=== PATIENT | female | born 1990 | race Two or more races ===

== ENCOUNTER 2024-08-10 02:08 | Inpatient (IN) | payer MEDICAID, SELFPAY ==
[2024-08-10] VITALS (19 sets, daily range): BP systolic 112–200; BP diastolic 61–85; PULSE 72–98; RESP 16–98; TEMP 36.4–36.9; O2SAT 97–98; BMI 41.5
[2024-08-10 03:04] LABS: Basophils % (Auto) 0 % (0-2.5); Eosinophils % (Auto) 1 % (0-10); Hematocrit 33.4 % (36.0-46.0); Hemoglobin 11.1 g/dL (12.0-16.0); Immature Granulocytes % (Auto) 0 % (0-0); Immature Granulocytes Auto 0.02 Thou/mm3 (0.00-0.00); Lymphocytes # (Auto) 1.5 Thou/mm3 (1.0-4.8); Lymphocytes % (Auto) 22 % (10-50); Mean Corpuscular HGB Conc 33.2 g/dl (31.0-37.0); Mean Corpuscular Volume 84 fL (80-100); Monocytes # (Auto) 0.5 Thou/mm3 (0.0-0.8); Monocytes % (Auto) 8 % (0-12); Neutrophils # (Auto) 4.6 Thou/mm3 (1.8-7.7); Neutrophils % (Auto) 69 % (37-80); Nucleated Red Blood Cell % 0 /100 WBC (0); Platelet Count 199 Thou/mm3 (140-440); RDW Standard Deviation 52.5 fL (36.4-46.3); Red Blood Count 3.97 Miln/mm3 (4.00-5.20); White Blood Count 6.7 Thou/mm3 (3.6-11.0)
[2024-08-10 03:43] LABS: Syphilis Nonreactive (Nonreactive)
[2024-08-10] MEDS: RINGERS LACTATED 1000 ML 1,000 ML 125 ML IV (04:22)
--- NOTE | 2024-08-10 04:41 | PD.LDHP ---
Documentation for date of: 08/10/24 OB Labor/Induct. HPI History of Present Illness History of sections: No History of : No History of present illness: Dictated on STAT line in [facility]. [id number] History of Present Adequate Care: Yes Past Medical History Surgical History SURGICAL: Negative Section Meds Home Medications and Allergies Home Medications ?Medication ?Instructions ?Recorded ?Confirmed ?Type No Known Home Medications 08/10/24 08/10/24 History Allergies Allergy/AdvReac Type Severity Reaction Status Date / Time No Known Allergies Allergy Verified 08/10/24 02:59 OB Exam Physical Exam Vital signs: Temp Pulse Resp BP O2 Del Method 98.1 F 86 20 138/85 H Room Air 08/10/24 02:58 08/10/24 02:56 08/10/24 02:58 08/10/24 02:56 08/10/24 02:58 OB Results Labs 08/10/24 02:31 Labs: Short CBC 08/10/24 Range/Units 02:31 WBC 6.7 (3.6-11.0) Thou/mm3 Hgb 11.1 L (12.0-16.0) g/dL Hct 33.4 L (36.0-46.0) % Plt Count 199 (140-440) Thou/mm3
--- NOTE | 2024-08-10 05:25 | PD.LDPN ---
Documentation for date of: 08/10/24 OB Labor Progress Note Pelvic Exam Dilation (cm): 6 Effacement (%): 80 station: -2 Amniotic membrane status: Intact Comments: VTX per RN Contractions Contraction frequency: q 3-4 min Status status: Category l Assessment and Plan Comments: Anticipate Declines Epidural.
--- NOTE | 2024-08-10 05:36 | ESHP_ITS ---
RE: SHARRI MARTINEZ : 1990 DATE OF ADMISSION: 08/10/2024 HISTORY OF PRESENT ILLNESS: This is a 33-year-old 6, para 5 with a due date of 08/11/2024 with an intrauterine at 39 weeks and 6 days. She presents to labor and delivery complaining of contractions and is noted to be in early labor. She denies any leaking or bleeding. She reports normal movement. Her care is complicated by borderline chronic hypertension with superimposed preeclampsia without severe features. She denies any headache, change in vision, or right upper quadrant pain. ALLERGIES: NO KNOWN DRUG ALLERGIES. MEDICATIONS: 1. multivitamin one p.o. daily. 2. Aspirin 81 mg one p.o. daily. 3. Ferrous sulfate 325 mg one p.o. b.i.d. PAST MEDICAL HISTORY: Borderline chronic hypertension, preeclampsia, gestational diabetes, and a prior . SOCIAL HISTORY: She is . She denies any alcohol, drug use, or smoking. OBSTETRIC HISTORY: Five prior full-term normal vaginal deliveries without complications. PAST SURGICAL HISTORY: Denies. REVIEW OF SYSTEMS: She denies any chest pain, palpitations, cough, fever, shortness of breath or lower extremity pain. PHYSICAL EXAMINATION: VITAL SIGNS: Blood pressure is 140/90, heart rate 88, respirations 18, temperature 98.2. HEENT: Oropharynx and sclerae are clear. LUNGS: Clear to auscultation bilaterally. HEART: Regular rate and rhythm. ABDOMEN: Gravid, term size consistent with estimated weight 7 3/4 pounds. PELVIC: See RN notes. EXTREMITIES: Nontender. SKIN: No gross rashes or lesions. NEUROLOGIC: No focal deficits. ASSESSMENT AND PLAN: Intrauterine at 39 weeks and 6 days, preeclampsia without severe features, borderline chronic hypertension, early labor, anticipate spontaneous vaginal delivery. Informed consent was obtained. The patient was made aware of the risks, complications, alternatives, and benefits of operative vaginal delivery and delivery and agrees with these modes of delivery if indicated. DT: 04:38:10 TT: 05:34:00 Ref: [id number] - TID: [id number]
[2024-08-10] MEDS: OXYTOCIN in NS 30 units 30 UNIT/500 ML BAG IV (08:59)
--- NOTE | 2024-08-10 12:19 | PD.LDDS ---
DS: Providers Provider Date of admission: 08/10/24 02:18 Primary care physician: Physician No Primary/Family Admitting Provider: Jackson Skaggs MD Attending Provider on Admission: Jackson Skaggs MD Attending Provider on DC: Jackson Skaggs MD Discharging Provider: Jackson Skaggs MD DS: Diagnosis Problem List Completed Was Problem List Reviewed/Reconciled?: Yes Summary/Hosp Course Brief History: Dictated on STAT line in [facility] #9. [id number] Time Spent with Patient Time attestation: Total time spent providing and/or coordinating discharge services: Exam Vital Signs Temp Pulse Resp BP O2 Del Method 98.3 F 98 17 135/85 H Room Air 08/10/24 11:24 08/10/24 11:54 08/10/24 07:03 08/10/24 11:54 08/10/24 02:58 Discharge Plan Plan Patient Disposition: HOME (Self Care) Patient condition on transfer: Stable Prescriptions/Referrals Prescriptions/Med Rec: New ibuprofen 600 mg tablet 600 mg PO Q6H PRN (Reason: pain) Qty: 30 0RF Referrals: No Primary/Family,Physician [Primary Care Provider] - Patient/Caregiver Discharge Instructions Discharge Activity: activity as tolerated Other Discharge Activity Instructions:: Follow up office 6 weeks. Education Materials: After a Vaginal , Breast Care After , : Caring for Yourself Print Language: [place] Citizen Stand Alone Forms: Esther Award Info., Patient Portal Info Letter Discharge Order Discharge Orders: Discharge (Routine); Ordered 08/11/24 Ordered By: Jackson Skaggs Planned Discharge Date 08/11/24
[2024-08-10] MEDS: IBUPROFEN TAB 400 MG TABLET 800 MG PO (13:25)
[2024-08-10] MEDS: BENZOCAINE/BENZETHON (Dermoplast First Aid Spray) 78 GM CAN 1 SPRAY TOP (15:03)
--- NOTE | 2024-08-10 15:16 | OBDSUM_ITS ---
Data (Alfonso) Data Hx Section: No : 6 Para: 5 Term: 5 : 0 : 0 Delivery Data (Alfonso) Labor Data ROM Date: 08/10/24 ROM Time: 10:37 Rupture Type: AROM Amniotic Fluid: Thin Meconium Delivery Data EDC: 08/11/24 EDC calculated by:: LMP/early US confirmation Labor Onset Stage 1 Date: 08/10/24 Labor Onset Stage 1 Time: 05:08 Labor Onset Stage 2 Date: 08/10/24 Labor Onset Stage 2 Time: 11:55 Delivery Date: 08/10/24 Delivery Time: 12:01 Gestational age (weeks): 39 Gestational age (days): 6 Placenta Delivery Date: 08/10/24 Placenta Delivery Time: 12:07 Delivered by: Jackson Skaggs Delivery nurse: Ana Maria Mo Other staff at delivery: Nursery Nurse Other staff at delivery: Abby Rangel Delivery Method Delivery: Vaginal Delivery Type: Spontaneous Presentation: Vertex Position: OA Anesthesia Type Primary Anesthesia: None Placenta Placenta Delivery: Spontaneous Placenta Cultures Obtained: No Placenta Sent for Examination: No Cord Sample: Cord Blood Obtained EBL Estimated blood loss (ml): 150 Additional Procedures None Complications Complications: None Data (Alfonso) [place] Data Gender: Male Weight Grams: 3700 1 Minute Total: 7 5 Minute Total: 9
[2024-08-10 18:48] LABS: Basophils % (Auto) 0 % (0-2.5); Eosinophils % (Auto) 0 % (0-10); Hematocrit 31.4 % (36.0-46.0); Hemoglobin 10.4 g/dL (12.0-16.0); Immature Granulocytes % (Auto) 0 % (0-0); Immature Granulocytes Auto 0.04 Thou/mm3 (0.00-0.00); Lymphocytes # (Auto) 1.1 Thou/mm3 (1.0-4.8); Lymphocytes % (Auto) 11 % (10-50); Mean Corpuscular HGB Conc 33.1 g/dl (31.0-37.0); Mean Corpuscular Volume 85 fL (80-100); Monocytes # (Auto) 0.5 Thou/mm3 (0.0-0.8); Monocytes % (Auto) 5 % (0-12); Neutrophils # (Auto) 8.5 Thou/mm3 (1.8-7.7); Neutrophils % (Auto) 84 % (37-80); Nucleated Red Blood Cell % 0 /100 WBC (0); Platelet Count 183 Thou/mm3 (140-440); RDW Standard Deviation 52.8 fL (36.4-46.3); Red Blood Count 3.71 Miln/mm3 (4.00-5.20); White Blood Count 10.2 Thou/mm3 (3.6-11.0)
[2024-08-11] MEDS: IBUPROFEN TAB 400 MG TABLET 800 MG PO ×2 (00:07→11:11)
[2024-08-11 00:10] VITALS: BP 127/82; PULSE 73; RESP 20; TEMP 36.8; O2SAT 95
[2024-08-11 04:14] VITALS: BP 123/79; PULSE 71; RESP 20; TEMP 36.8; O2SAT 98
[2024-08-11 08:05] VITALS: BP 131/72; PULSE 93; RESP 18; TEMP 36.7; O2SAT 97
[2024-08-11 11:56] VITALS: BP 127/80; PULSE 89; RESP 17; TEMP 36.7; O2SAT 97
== END 2024-08-11 15:14 | disposition home or self-care (01) | DRG 560 ==
LOC: S4SX 12:17 → S4NX 15:00
PROVIDERS: Admitting Provider Specialist; Visit Provider Specialist
DX: O14.04 Mild to moderate pre-eclampsia, complicating childbirth (principal); Z37.0 Single live birth; Z3A.39 39 weeks gestation of pregnancy; O77.0 Labor and delivery complicated by meconium in amniotic fluid; Z53.29 Procedure and treatment not carried out because of patient's decision for other reasons
CPT/HCPCS: 36415; 59409; 85025; 86780; 86850; 86900; 86901; 86923; A9270; J2590; J7120

== ENCOUNTER 2024-08-13 18:39 | Inpatient (IN) | payer MEDICAID, SELFPAY ==
[2024-08-13] VITALS (16 sets, daily range): BP systolic 95–118; BP diastolic 51–72; PULSE 110–145; RESP 21–96; TEMP 39.3; O2SAT 91–97; BMI 30.2
--- NOTE | 2024-08-13 18:59 | PC.NURSE ---
maternal sepsis called
--- NOTE | 2024-08-13 19:04 | XR_ITS ---
Examination: AP chest single view Technique one AP portable semiupright chest single view Exam date and time: August 13, 2024 1935 hrs. Indications: Sepsis protocol, fever vaginal pain post August 10, 2024 Findings: Normal heart size. Lungs are clear. The osseous structures are intact Impression: No active disease
--- NOTE | 2024-08-13 19:04 | XR_ITS ---
Examination: Pelvic ultrasound, transabdominal, complete Technique: Transabdominal ultrasound of the pelvis performed using grayscale imaging Date and time of exam: August 13, 20242 hrs. Indications: Fever today, August 10, 2024 Findings: Uterus 15.9 x 2.4 x 4.8 cm Endometrial stripe 29 mm Right ovary 3.4 x 2.5 x 2.8 cm arterial flow Left ovary 4.0 x 2.5 x 2.67 arterial flow Impression: Recommend transvaginal pelvic sonography follow-up to exclude retained products of conception
--- NOTE | 2024-08-13 19:06 | PD.EDRME ---
Rapid Medical Screening Exam RME Arrival date/time: 08/13/24 18:39 33-year-old female past medical history of preeclampsia and recent vaginal delivery 6 para 6 presents emergency department complaining of pelvic pain fever and chills that has been ongoing since she was discharged from hospital. Chief Complaint: Urogenital-Female Vital signs: Vital Signs Temperature 102.8 F H 08/13/24 18:58 Pulse Rate 145 H 08/13/24 18:58 Respiratory Rate 24 H 08/13/24 18:58 Blood Pressure 100/63 08/13/24 18:58 Pulse Oximetry (%) 97 08/13/24 18:58 Oxygen Delivery Method Room Air 08/13/24 18:58 Vital signs reviewed by provider: Yes
--- NOTE | 2024-08-13 19:30 | PD.EDFMALE ---
ED Female Urogenital RME/HPI General Chief complaint: Urogenital-Female Stated complaint: VAGINAL PAIN @0500; 08/10/24 Time Seen by Provider: 08/13/24 19:20 Source: patient Arrival date/time: 08/13/24 18:39 Mode of arrival: ambulatory Limitations: no limitations RME / HPI RME / HPI Narrative: 08/13/24 18:39 33-year-old female past medical history of preeclampsia and recent vaginal delivery 6 para 6 presents emergency department complaining of pelvic pain fever and chills that has been ongoing since she was discharged from hospital. Dr. Carlin?s Main ED Evaluation: 33-year-old female, 3 days following a normal vaginal delivery, who presents with severe vaginal and pelvic pain and difficulty ambulating. She was discharged home on Tuesday08/10/24 and initially experienced shakiness and chills, which she managed with Tylenol, leading to temporary improvement. However, this morning, she awoke with a sensation of a bone moving while coughing hard, followed by severe pain that has significantly impacted her mobility. She reports being unable to cross her right leg over the other due to intense discomfort. While she is currently lying comfortably, on the hospital bed, any repositioning or movement exacerbates her pain to 10/10. Additionally, she has developed new-onset uterine pain and foul-smelling vaginal discharge but denies excessive vaginal bleeding beyond what she considers normal levels. She denies any other associated symptoms. This is her sixth . Related Data Previous Rx's ?Medication ?Instructions ?Recorded ibuprofen 600 mg tablet 600 mg PO Q6H PRN pain #30 tabs 08/10/24 Allergies Allergy/AdvReac Type Severity Reaction Status Date / Time No Known Allergies Allergy Verified 08/13/24 18:43 Review of Systems Review of Systems Systems Reviewed: All systems reviewed, normal except as documented Past Medical History Past Medical History NEUROLOGIC: Negative Neurological Disorders or Seizures CARDIAC: Negative Cardiac Disorders or Congestive Heart Failure RESPIRATORY: Negative Chronic Obstructive Pulmonary Disease (COPD) GASTROINTESTINAL: Negative Gastrointestinal Disorders or Hepatitis GENITOURINARY: Negative Genitourinary Disorders or Renal Disease REPRODUCTIVE: Positive Previous Pregnancies MUSCULOSKELETAL: Negative Musculoskeletal Disorders ENDOCRINE: Negative Endocrine Disorders, Diabetes Mellitus Type 1 or Diabetes Mellitus Type 2 HEMATOLOGIC: Negative Blood Disorders or Anemia OTHER HISTORY: Negative Hospitalization, Autoimmune Disease, Down Syndrome, Developmental Delay, Shingles, Falls, Blood Transfusions, Blood Transfusion Reaction, Anesthesia Reactions, Organ Transplant, Chemotherapy, Radiation Therapy, Hyperbaric Therapy, MRSA, VRSA, Vancomycin-Resistant Enterococci, Human Immunodeficiency Virus (HIV), Chicken Pox, Measles, Mumps, Rubella (Divehi Measles), Pertussis, Clostridium Difficile or Cancer Family History FAMILY HISTORY: Negative Family Psychiatric Problems, Family Respiratory Disorders, Family Cardiac Disorders, Family Gastrointestinal Problems, Family Cancer, Family Surgery or Family Anesthesia Reaction Surgical History SURGICAL: Negative Section or Organ Transplant Social History SMOKING STATUS: Never smoker ED Exam Narrative Physical exam: GENERAL APPEARANCE: alert and oriented x 4, well-developed, well-nourished, no acute distress VITALS: All vitals were reviewed and the pulse ox is 97% on room air, which is normal according to my interpretation. HEENT: Normocephalic, atraumatic; pupils equal, round, reactive to light; EOMI; mucous membranes pink, moist; oropharynx clear NECK: Supple LUNGS: CTABL; no wheezes, no rales, no rhonchi HEART: Regular rate, regular rhythm; normal S1, S2; no murmurs ABDOMEN: non distended; normal BS; soft, moderate to severe tenderness is noted on palpation of the suprapubic region, without guarding or rebound tenderness; tenderness is elicited with joint flexion, more pronounced on the left side compared to the right; no tenderness is appreciated in the right upper quadrant on deep palpation. BACK: no CVA tenderness EXTREMITIES: atraumatic; no edema NEUROLOGIC: awake; alert and oriented x4; cranial nerves II-XII grossly intact; no focal sensory or motor deficits PSYCHIATRIC: appropriate mood and affect SKIN: warm, dry, normal color; no rashes General Limitations: Present no limitations Course Course Course Narrative: 190 Sepsis alert initiated. Orders made at this time are congruent with ED Adult Sepsis Order List. Re-evaluation is to be completed. 193 Sepsis reassessment performed consisting of lab review, vitals, physical exam including auscultation of heart, lungs, and visual evaluation of capillary refills, mucosal membranes and extremities. CXR is ordered for determining etiology of fever. Quality Measures Current suspected stage: sepsis Possible source: other () Blood cultures ordered: yes Antibiotic ordered: Yes Pertinent labs: 08/13/24 19:19 Lactic Acid 1.9 mMol/L (0.4-2.0) Procalcitonin 8.22 H ng/ml (0.0-0.49) sepsis Orders Category Date Time Status Bedside Influenza A&B Antigen Test NOW Care 08/13/24 19:05 Active Larry Car Operator Q4H START 00 Care 08/13/24 19:04 Active Continuous Pulse Oximetry NOW Care 08/13/24 19:04 Completed In and Out Catheter X1PRN Care 08/13/24 19:21 Active Insert IV NOW Care 08/13/24 19:04 Completed Insert IV NOW Care 08/13/24 19:21 Active NPO NOW Care 08/13/24 19:04 Active Strict Intake and Output Routine Care 08/13/24 19:21 Ordered Diet NPO (NOW) Diet 08/13/24 19:04 Active US pelvic complete Stat Exams 08/13/24 19:04 Completed XR chest 1V SEPSIS PROTOCOL Stat Exams 08/13/24 19:04 Completed B-Type Natriuretic Peptide Stat Lab 08/13/24 19:19 Completed Blood Culture (Lab) Stat Lab 08/13/24 19:19 Received CBC AM DRAW Lab 08/14/24 05:00 Ordered CBC Stat Lab 08/13/24 19:19 Completed Comprehensive Metabolic Panel AM DRAW Lab 08/14/24 05:00 Ordered Comprehensive Metabolic Panel Stat Lab 08/13/24 19:19 Completed Fibrinogen AM DRAW Lab 08/14/24 05:00 Ordered LDH (Lactate Dehydrogenase) Stat Lab 08/13/24 19:19 Completed Lactate (Lactic Acid) Stat Lab 08/13/24 19:19 Completed Lipase Stat Lab 08/13/24 19:19 Completed Magnesium Stat Lab 08/13/24 19:19 Completed Partial Thromboplastin Time AM DRAW Lab 08/14/24 05:00 Ordered Partial Thromboplastin Time Stat Lab 08/13/24 19:19 Completed Phosphorous Stat Lab 08/13/24 19:19 Completed Procalcitonin Stat Lab 08/13/24 19:19 Completed Prothrombin Time with INR AM DRAW Lab 08/14/24 05:00 Ordered Prothrombin Time with INR Stat Lab 08/13/24 19:19 Completed Troponin I Stat Lab 08/13/24 19:19 Completed Urinalysis Stat Lab 08/13/24 19:04 Ordered Urine Culture Stat Lab 08/13/24 19:04 Ordered Acetaminophen Ivpb [Ofirmev Inj] Med 08/13/24 19:31 Discontinued 1,000 mg in 100 ml IV X1 Acetaminophen Tab [Tylenol ES Tab] Med 08/13/24 19:05 Discontinued 1,000 mg PO X1 ONE Clindamycin/Ns 600 mg Ivpb [Cleocin/Ns Ivpb] Med 08/13/24 19:32 Discontinued 600 mg in 50 ml IV X1 Gentamicin/Ns 80 mg Ivpb 80 mg Med 08/13/24 19:30 Discontinued Pre-Mixed [Pre-mixed Bag] 1 bag IV X1 HYDROcodone*/APAP 5/325 [[place] 5/325] Med 08/13/24 23:06 Hold 1 tab PO Q6HR PRN HYDROmorphone INJ [Dilaudid Inj] Med 08/13/24 21:00 Active 0.5 mg IVP PRN Naph,Kph Mbdb [Neutra-Phos Pkt] Med 08/13/24 23:17 Discontinued 1 packet PO X1 ONE Ondansetron Inj [Zofran Inj] Med 08/13/24 20:59 Discontinued 4 mg IV X1 ONE POTASSIUM CHL 10 mEq IVPB [Kcl Ivpb] Med 08/13/24 23:15 Active 10 meq in 100 ml IV Q1H Piper/Tazo 3.375 gm [Zosyn] Med 08/13/24 23:10 Pending 3.375 gm in 50 ml IV Q6HR Piper/Tazo 3.375 gm [Zosyn] 50 ml Med 08/13/24 20:30 Discontinued IV X1 Ringers Lactated 1000 ml [Lactated Ringers] 1,000 ml Med 08/13/24 23:08 Active IV 125 mls/hr Sodium Chloride 0.9% 1000 ml [Ns] 1,000 ml Med 08/13/24 19:30 Discontinued IV 999 mls/hr Sodium Chloride 0.9% 1000 ml [Ns] 1,000 ml Med 08/13/24 20:39 Discontinued IV 999 mls/hr Vancomycin Inj 1,000 mg Med 08/13/24 23:15 Pending Sodium Chloride 0.9% 250 ml [Ns] 250 ml IV Q12H Vancomycin Inj 1,000 mg Med 08/13/24 20:30 Discontinued Sodium Chloride 0.9% 250 ml [Ns] 250 ml IV X1 Code Status Routine Oth 08/13/24 23:01 Ordered EKG (RT) Stat RT 08/13/24 19:04 Ordered Oxygen Delivery NOW RT 08/13/24 19:04 Active Vital Signs Vital signs: Vital Signs Temperature 102.8 F H 08/13/24 18:58 Pulse Rate 145 H 08/13/24 18:58 Respiratory Rate 24 H 08/13/24 18:58 Blood Pressure 100/63 08/13/24 18:58 Pulse Oximetry (%) 97 08/13/24 18:58 Oxygen Delivery Method Room Air 08/13/24 18:58 Urogenital - Female MDM Narrative MDM Narrative:: Differential diagnoses include endometritis, uterine rupture, acute appendicitis, urinary tract infection (UTI), and puerperal sepsis. 1935 Case was discussed with the on-call OB, Dr. Gaston, who has accepted the patient for consultation. 2027 Case d/w Dr. Skaggs, OB, who saw patient at bedside. He states to give Vanco and Zosyn then call him back with the ultrasound results. [address] Skaggs from OB regarding consultation. Discussed patients ED course, exam findings, labs, and radiology results. Will admit the patient. Scribe Attestation: I, Anneilese Sandoval, am scribing for and in the presence of Dr. Carlin. Provider Notation: Although this document has been carefully reviewed, there may still be some phonetic and other typographical errors. These errors are purely grammatical due to imperfections in the software program and should not be construed in any way to compromise the substance of the patient's medical care during this visit. Patient data External records reviewed:: [facility] previous records Clinical information provided by:: patient Social determinants that could affect healthcare access:: none Patient has the following chronic illnesses:: see PMH How is presenting disease/condition affected by chronic disease/condition?: exacerbated by Evaluation data The following diagnostics were reviewed and interpreted by me:: lab results and radiology exam(s) Lab and/or radiology exams considered but not ordered:: na Interpretation Summary: I personally reviewed the radiology data and agree with the radiologist's interpretation. Medications / Prescriptions Medications or Prescriptions considered but not ordered:: na Medication administrations:: Medication Administration History Hydrocodone Bitart/Acetaminophen (Hydrocodone/Apap 5/325 Tablet) 1 tab PO Q6HR PRN PRN Reason: PAIN SCALE 4-10(Mod-Sev Stop: 08/18/24 23:05 Hydromorphone HCl (Hydromorphone Inj 2 Mg/Ml Vial) 0.5 mg IVP PRN ISABEL Stop: 08/18/24 20:59 Last Admin: 08/13/24 22:25 Dose: 0.5 mg Documented By: Admin: 08/13/24 21:35 Dose: 0.5 mg Documented By: EF Lactated Ringer's (Lactated Ringers) 1,000 mls @ 125 mls/hr IV .Q8H ISABEL Stop: 09/12/24 23:07 Last Admin: 08/14/24 00:00 Dose: 125 mls/hr Documented By: EF Piperacillin/Tazobactam/Dextrose (Zosyn) 3.375 gm in 50 mls @ 100 mls/hr IV Q6HR ISABEL Stop: 08/20/24 23:09 Vancomycin HCl 1,000 mg/ (Sodium Chloride) 250 mls @ 150 mls/hr IV Q12H ISABEL Stop: 08/20/24 23:14 Potassium Chloride (Kcl Ivpb) 10 meq in 100 mls @ 100 mls/hr IV Q1H ISABEL Stop: 08/14/24 03:14 Last Admin: 08/14/24 01:56 Dose: 100 mls/hr Documented By: Infusion: 08/14/24 01:55 Dose: Infused Documented By: Admin: 08/14/24 00:55 Dose: 100 mls/hr Documented By: Infusion: 08/14/24 00:55 Dose: Infused Documented By: Admin: 08/14/24 00:00 Dose: 100 mls/hr Documented By: EF Discontinued Medications Acetaminophen (Acetaminophen 500 Mg Tablet) 1,000 mg PO X1 ONE Stop: 08/13/24 19:06 Last Admin: 08/13/24 19:45 Dose: Not Given Documented By: TC Non-Admin Reason: Discontinued Acetaminophen (Ofirmev Inj) 1,000 mg in 100 mls @ 250 mls/hr IV X1 ONE Stop: 08/13/24 19:54 Last Infusion: 08/13/24 20:30 Dose: Infused Documented By: Admin: 08/13/24 20:04 Dose: 250 mls/hr Documented By: KENNETH Sodium Chloride (Ns) 1,000 mls @ 999 mls/hr IV .Q1H1M ONE Stop: 08/13/24 20:30 Last Infusion: 08/13/24 21:26 Dose: Infused Documented By: Admin: 08/13/24 20:03 Dose: 999 mls/hr Documented By: KENNETH Comments: scanner not working Clindamycin/Sodium Chloride (Cleocin/Ns Ivpb) 600 mg in 50 mls @ 100 mls/hr IV X1 ONE Stop: 08/13/24 20:01 Last Infusion: 08/13/24 20:37 Dose: Infused Documented By: Admin: 08/13/24 20:07 Dose: 100 mls/hr Documented By: KENNETH Comments: scanner broken Gentamicin Sulfate/Sodium Chloride 80 mg/ IV Miscellaneous Supplies 50 mls @ 50 mls/hr IV X1 ISABEL Stop: 08/20/24 19:29 Piperacillin/Tazobactam/Dextrose (Zosyn) 50 mls @ 100 mls/hr IV X1 ONE Stop: 08/13/24 20:59 Last Infusion: 08/13/24 21:26 Dose: Infused Documented By: Admin: 08/13/24 20:40 Dose: 100 mls/hr Documented By: EF Vancomycin HCl 1,000 mg/ (Sodium Chloride) 250 mls @ 150 mls/hr IV X1 ONE Stop: 08/13/24 22:09 Last Infusion: 08/13/24 23:32 Dose: Infused Documented By: Admin: 08/13/24 21:35 Dose: 150 mls/hr Documented By: EF Sodium Chloride (Ns) 1,000 mls @ 999 mls/hr IV .Q1H1M ONE Stop: 08/13/24 21:39 Last Infusion: 08/13/24 21:26 Dose: Infused Documented By: Admin: 08/13/24 20:41 Dose: 999 mls/hr Documented By: EF Ondansetron HCl (Ondansetron Inj 2 Mg/Ml Inj 2 Ml) 4 mg IV X1 ONE; Protocol Stop: 08/13/24 21:00 Last Admin: 08/13/24 21:35 Dose: 4 mg Documented By: EF Potassium Phos/Sodium Phos (Naph,[facility] Mbdb 1 Packet (1.5 Gm)) 1 packet PO X1 ONE Stop: 08/13/24 23:18 Last Admin: 08/14/24 01:57 Dose: 1 packet Documented By: TC as above Consultations Consultation(s) initiated? (list below): Yes Consultation #1 (Physician, Specialty, Details): see narrative Diagnosis Urogenital Female Differential Diagnosis: other (see narrative) Most likely diagnosis given after review of the tests above:: see clinical impression Admission Indicated Admission indicated?: indicated Admission Request Was there a request for admission?: Yes Admission Attestation Admission request attestation: Discussed case with [] from Hospitalist service regarding admission. Discussed patients ED course, exam findings, labs, and radiology results. The Hospitalist [agrees,declines] to accept the patient for admission. Disposition Plan Disposition Plan: Admit Critical Care Time Critical Care Time Critical Care Time: Yes Total Critical Care Time (min.): 40 Attestation: The high probability of sudden, clinically significant deterioration in the patient?s condition required the highest level of my preparedness to intervene urgently. ? The services I provided to this patient were to treat and/or prevent clinically significant deterioration. Services included the following: chart data review, reviewing nursing notes and/or old charts, documentation time, transformation consultant collaboration regarding findings and treatment options, medication orders and management, direct patient care, vital sign assessments and ordering, interpreting and reviewing diagnostic studies and lab tests. ? Aggregate critical care time includes only time during which I was engaged in work directly related to the patient?s care, as described above, whether at bedside or elsewhere in the Emergency Department. It did not include time spent performing other reported procedures or the services of residents, students, nurses or physician assistants. Discharge Plan Problem List Clinical Impression: Acute endometritis, Sepsis
[2024-08-13 19:32] LABS: Lactate (Lactic Acid) 1.9 mMol/L (0.4-2.0)
[2024-08-13 19:56] LABS: Partial Thromboplastin Time 37.6 Seconds (22.0-36.0); Prothrombin Time 11.4 Seconds (9.0-12.2)
[2024-08-13 19:57] LABS: Alanine Aminotransferase 15 U/L (10-49); Albumin, Serum 3.2 gm/dL (3.5-5.0); Albumin/Globulin Ratio 1.2 (1.2-2.2); Alkaline Phosphatase 111 U/L (46-116); Anion Gap 13 (7-16); Aspartate Amino Transferase 29 U/L (0-34); BUN/Creatinine Ratio 23 Ratio (12-20); Bilirubin,Total 0.9 mg/dL (0.3-1.2); Blood Urea Nitrogen 16 mg/dL (9-23); Calcium (Corrected) 8.6 mg/dL (8.5-10.1); Carbon Dioxide 20.5 mMol/L (20.0-31.0); Chloride 98 mMol/L (98-107); Creatinine (Component) 0.7 mg/dL (0.6-1.3); Globulin 2.6 gm/dL (2.3-3.5); Glucose 85 mg/dL (74-106); LDH (Lactate Dehydrogenase) 347 U/L (120-246); Lipase 28 U/L (12-53); Magnesium 1.7 mg/dL (1.6-2.6); Osmolality,Calculated 262 (275-295); Phosphorous 1.8 mg/dL (2.4-5.1); Potassium 3.1 mMol/L (3.4-5.1); Sodium 131 mMol/L (136-145); Total Protein 5.8 gm/dL (5.7-8.2); eGFR > 60 See Note
[2024-08-13 20:00] LABS: Troponin I 0.054 ng/mL (0.0-0.045)
[2024-08-13] MEDS: SODIUM CHLORIDE 0.9% 1000 ML 1,000 ML 999 ML IV ×2 (20:03→20:41)
[2024-08-13] MEDS: ACETAMINOPHEN IVPB 1,000 MG/100 ML VIAL 250 MG IV (20:04)
[2024-08-13 20:05] LABS: Procalcitonin 8.22 ng/ml (0.0-0.49)
[2024-08-13] MEDS: CLINDAMYCIN/NS 600 MG IVPB 600 MG/50 ML BAG 100 MG IV (20:07)
[2024-08-13 20:09] LABS: Basophils % (Auto) 0 % (0-2.5); Eosinophils % (Auto) 0 % (0-10); Hematocrit 33.4 % (36.0-46.0); Hemoglobin 11.5 g/dL (12.0-16.0); Immature Granulocytes % (Auto) 0 % (0-0); Immature Granulocytes Auto 0.03 Thou/mm3 (0.00-0.00); Lymphocytes # (Auto) 0.3 Thou/mm3 (1.0-4.8); Lymphocytes % (Auto) 4 % (10-50); Mean Corpuscular HGB Conc 34.4 g/dl (31.0-37.0); Mean Corpuscular Hemoglobin 28.2 pg (25.0-35.0); Mean Corpuscular Volume 82 fL (80-100); Monocytes # (Auto) 0.2 Thou/mm3 (0.0-0.8); Monocytes % (Auto) 3 % (0-12); Neutrophils # (Auto) 7.5 Thou/mm3 (1.8-7.7); Neutrophils % (Auto) 93 % (37-80); Nucleated Red Blood Cell % 0 /100 WBC (0); Platelet Count 121 Thou/mm3 (140-440); RDW Standard Deviation 51.4 fL (36.4-46.3); Red Blood Count 4.08 Miln/mm3 (4.00-5.20); White Blood Count 8.1 Thou/mm3 (3.6-11.0)
[2024-08-13 20:30] LABS: B-Type Natriuretic Peptide 56 pg/mL (0-100)
--- NOTE | 2024-08-13 20:31 | PC.NURSE ---
191: Jalil RNC-OB in pt's room to assess Pt., Pt A/O x3, reports my body aches, when I cross my legs over another, it hurts , Pt's fundus firm, light pink lochia with white to yellowish foul odor smell noted. On fundal massage, lower abdominal segment was warm to touch. Pt. rates pain 10/10.
[2024-08-13] MEDS: PIPER/TAZO 3.375 GM 50 ML IV (20:40)
--- NOTE | 2024-08-13 20:54 | ESHP_ITS ---
Documentation for date of: 08/13/24 MANUFACTURERS REPRESENTATIVE - HPI History of Present Illness History of present illness: H and P dictated on STAT line in [facility] #9. [id number]. Meds Home Medications and Allergies Allergies Allergy/AdvReac Type Severity Reaction Status Date / Time No Known Allergies Allergy Verified 08/13/24 18:43 Exam - MANUFACTURERS REPRESENTATIVE Vital Signs Temp Pulse Resp BP Pulse Ox O2 Del Method 102.8 F H 132 H 27 H 100/63 97 Room Air 08/13/24 18:58 08/13/24 19:43 08/13/24 19:43 08/13/24 18:58 08/13/24 18:58 08/13/24 18:58 MANUFACTURERS REPRESENTATIVE - Results Labs 08/13/24 19:19 08/13/24 19:19 Labs: Short CBC 08/13/24 Range/Units 19:19 WBC 8.1 (3.6-11.0) Thou/mm3 Hgb 11.5 L (12.0-16.0) g/dL Hct 33.4 L (36.0-46.0) % Plt Count 121 L D (140-440) Thou/mm3 BMP 08/13/24 19:19 Sodium 131 L Potassium 3.1 L Chloride 98 Carbon Dioxide 20.5 BUN 16 Creatinine 0.7 Glucose 85 Calcium 8.0 L Cardiac Enzymes 08/13/24 Range/Units 19:19 Troponin I 0.054 H* (0.0-0.045) ng/mL Liver Function 08/13/24 Range/Units 19:19 Total Bilirubin 0.9 (0.3-1.2) mg/dL AST 29 (0-34) U/L ALT 15 (10-49) U/L Alkaline Phosphatase 111 (46-116) U/L Albumin 3.2 L (3.5-5.0) gm/dL Quality Measures Quality Measures sepsis Current suspected stage: severe sepsis Possible source: other () Blood cultures ordered: yes Antibiotic ordered: Yes
--- NOTE | 2024-08-13 21:05 | PC.NURSE ---
1919: Rubi Dougherty RN/ ED charge nurse made aware of findings.
[2024-08-13] MEDS: ONDANSETRON INJ 2 MG/ML INJ 2 ML 4 MG IV (21:35)
[2024-08-13] MEDS: Vancomycin Inj 1,000 MG in SODIUM CHLORIDE 0.9% 250 ML 250 ML 150 MG IV (21:35)
[2024-08-13] MEDS: HYDROmorphone INJ 2 MG/ML VIAL 0.5 MG IVP ×2 (21:35→22:25)
[2024-08-14] VITALS (31 sets, daily range): BP systolic 94–131; BP diastolic 59–86; PULSE 98–130; RESP 12–98; TEMP 36.4–38.3; O2SAT 92–98; BMI 29.9
[2024-08-14] MEDS: POTASSIUM CHL 10 mEq IVPB 10 MEQ/100 ML BAG 100 MEQ IV ×4 (00:55→03:09)
[2024-08-14] MEDS: NAPH,KPH MBDB 1 PACKET (1.5 GM) PO (01:57)
[2024-08-14 04:52] LABS: Basophils % (Auto) 0 % (0-2.5); Eosinophils % (Auto) 0 % (0-10); Hematocrit 31.6 % (36.0-46.0); Hemoglobin 10.5 g/dL (12.0-16.0); Immature Granulocytes % (Auto) 1 % (0-0); Lymphocytes # (Auto) 0.3 Thou/mm3 (1.0-4.8); Lymphocytes % (Auto) 4 % (10-50); Mean Corpuscular HGB Conc 33.2 g/dl (31.0-37.0); Mean Corpuscular Hemoglobin 28.2 pg (25.0-35.0); Mean Corpuscular Volume 85 fL (80-100); Monocytes # (Auto) 0.3 Thou/mm3 (0.0-0.8); Monocytes % (Auto) 4 % (0-12); Neutrophils # (Auto) 7.3 Thou/mm3 (1.8-7.7); Neutrophils % (Auto) 91 % (37-80); Nucleated Red Blood Cell % 0 /100 WBC (0); Platelet Count 112 Thou/mm3 (140-440); RDW Standard Deviation 54.1 fL (36.4-46.3); Red Blood Count 3.73 Miln/mm3 (4.00-5.20)
[2024-08-14 04:58] LABS: Collection Type, Urine Clean Catch
[2024-08-14 05:02] LABS: Bacteria,Urine Rare; Bilirubin,Urine Negative (Negative); Blood,Urine 3+ (Negative); Clarity,Urine Turbid (Clear/Hazy); Glucose, Urine Negative (Negative); Ketones,Urine Negative (Negative); Leukocyte Esterase,Urine Positive (Negative); Nitrite,Urine Negative (Negative); Protein,Urine 1+ (Neg - Trace); RBC,Urine 51 /hpf (0-3); Specific Gravity,Urine 1.022 (1.001-1.035); Squamous Epithelial Cell,Urine < 1 /hpf (0-5); Urobilinogen,Urine Negative mg/dL (0.0-1.0); WBC,Urine 59 /hpf (0-5)
[2024-08-14 05:09] LABS: Color,Urine Yellow (Lt Yel-Yel)
[2024-08-14 05:10] LABS: Partial Thromboplastin Time 39.1 Seconds (22.0-36.0); Prothrombin Time 11.2 Seconds (9.0-12.2)
[2024-08-14 05:13] LABS: Alanine Aminotransferase 13 U/L (10-49); Albumin/Globulin Ratio 1.3 (1.2-2.2); Alkaline Phosphatase 96 U/L (46-116); Anion Gap 8 (7-16); Aspartate Amino Transferase 24 U/L (0-34); BUN/Creatinine Ratio 22 Ratio (12-20); Bilirubin,Total 0.6 mg/dL (0.3-1.2); Blood Urea Nitrogen 13 mg/dL (9-23); Calcium 7.9 mg/dL (8.3-10.6); Calcium (Corrected) 8.7 mg/dL (8.5-10.1); Carbon Dioxide 23.1 mMol/L (20.0-31.0); Chloride 108 mMol/L (98-107); Creatinine (Component) 0.6 mg/dL (0.6-1.3); Estimated Creatinine Clearance 116.7 mL/min (>60); Globulin 2.3 gm/dL (2.3-3.5); Glucose 81 mg/dL (74-106); Osmolality,Calculated 276 (275-295); Potassium 3.5 mMol/L (3.4-5.1); Sodium 139 mMol/L (136-145); Total Protein 5.3 gm/dL (5.7-8.2); eGFR > 60 See Note
[2024-08-14 05:19] LABS: Fibrinogen 674 mg/dL (175-375)
--- NOTE | 2024-08-14 07:16 | ESHP_ITS ---
RE: SHARRI MARTINEZ : 1990 DATE OF ADMISSION: 08/13/2024 HISTORY OF PRESENT ILLNESS: This is a 33-year-old 6, para 6 who is day 3, status post spontaneous vaginal delivery without complication on 08/10 where she delivered a viable . Her course was unremarkable with no excessive bleeding and no fever or tachycardia. She was discharged home on day #1 with a normal white blood cell count without complaint. Subsequently, after she was discharged she noticed lower pelvic pain radiating to the vagina associated with fever and chills and feeling of prominence in the bone over the bladder when she coughs and pain in the area when she tries to cross her legs. The patient also reports a foul smelling discharge. Her care was complicated by borderline chronic hypertension with superimposed preeclampsia without severe features. ALLERGIES: NO KNOWN DRUG ALLERGIES. MEDICATIONS: 1. multivitamin 1 p.o. daily. 2. Ferrous sulfate 325 mg one p.o. b.i.d. PAST MEDICAL HISTORY: Borderline chronic hypertension with superimposed preeclampsia without severe features, gestational diabetes mellitus in a previous . SOCIAL HISTORY: She is . She denies any alcohol drug use or smoking. OBSTETRIC HISTORY: Six previous full-term normal vaginal deliveries without complication. PAST SURGICAL HISTORY: Denies. REVIEW OF SYSTEMS: She denies any chest pain, palpitations, shortness of breath or lower extremity pain or swelling. She denies any cough, sore throat, photophobia, flank pain, diarrhea or constipation. PHYSICAL EXAMINATION: VITAL SIGNS: Blood pressure is 100/63, heart rate 132, respirations 27, temperature is 102.8. HEENT: Oropharynx and sclerae are clear. LUNGS: Clear to auscultation bilaterally. HEART: Tachycardic, but regular rhythm. ABDOMEN: Uterine fundus is firm below the umbilicus. Mild tenderness with deep palpation. Overall, the abdomen is soft with no guarding, rebound, or rigidity. Tenderness noted at the site of the symphysis pubis. EXTREMITIES: Nontender. SKIN: No gross rashes or lesion. NEUROLOGIC: No focal deficits. ASSESSMENT: 1. endometritis. 2. Sepsis. 3. Possible symphysis pubis separation 4. UTI PLAN: Pelvic ultrasound to rule out retained products of conception. Zosyn and vancomycin, IV antibiotics. Pelvic x-ray to rule out symphysis pubis separation, pain management, sepsis labs and workup. I discussed with the patient, the nature of her condition and recommended treatment plan. All questions answered. Anticipate hospitalization for 48 to 72 hours. DT: 20:54:41 TT: 21:16:00 Ref: [id number] - TID: [id number] MTDD
[2024-08-14] MEDS: HYDROmorphone INJ 2 MG/ML VIAL 0.5 MG IVP ×2 (07:52→11:26)
[2024-08-14] MEDS: PIPER/TAZO INJ 3.375 GM in SODIUM CHLORIDE 0.9% (P) 50 ML IV ×2 (08:00→22:14)
--- NOTE | 2024-08-14 11:22 | XR_ITS ---
Examination: AP pelvis single view TECHNIQUE: AP portable supine pelvis single view Exam date and time: August 14, 2024 1139 hours INDICATIONS: pelvic pain FINDINGS: Diastasis at the symphysis 13 mm No hip or pelvic fracture Symmetrical SI joints IMPRESSION: Diastasis at the symphysis, 13 mm
[2024-08-14] MEDS: RINGERS LACTATED 1000 ML 1,000 ML 125 ML IV ×3 (11:24→20:26)
--- NOTE | 2024-08-14 12:17 | PC.NURSE ---
Report given to Tele
--- NOTE | 2024-08-14 12:20 | PC.NURSE ---
Pt arrived on the [facility] floor at 12:20
[2024-08-14] MEDS: ACETAMINOPHEN 325 MG TABLET 650 MG PO ×2 (12:50→23:58)
[2024-08-14] MEDS: VANCOMYCIN/NS 1 GM IVPB 200 ML IV ×2 (14:58→21:41)
[2024-08-14] MEDS: HYDROcodone/APAP 5/325 TABLET 1 TAB PO (21:45)
[2024-08-15] VITALS (10 sets, daily range): BP systolic 114–137; BP diastolic 77–88; PULSE 112–135; RESP 16–94; TEMP 36.6–39.4; O2SAT 91–95
[2024-08-15] MEDS: PIPER/TAZO INJ 3.375 GM in SODIUM CHLORIDE 0.9% (P) 50 ML IV ×2 (05:24→15:05)
[2024-08-15 05:28] LABS: Basophils # (Auto) 0.1 Thou/mm3 (0.0-0.2); Basophils % (Auto) 1 % (0-2.5); Eosinophils % (Auto) 0 % (0-10); Hematocrit 29.9 % (36.0-46.0); Hemoglobin 9.9 g/dL (12.0-16.0); Immature Granulocytes % (Auto) 5 % (0-0); Immature Granulocytes Auto 0.25 Thou/mm3 (0.00-0.00); Lymphocytes # (Auto) 0.5 Thou/mm3 (1.0-4.8); Lymphocytes % (Auto) 10 % (10-50); Mean Corpuscular HGB Conc 33.1 g/dl (31.0-37.0); Mean Corpuscular Hemoglobin 27.9 pg (25.0-35.0); Mean Corpuscular Volume 84 fL (80-100); Monocytes # (Auto) 0.2 Thou/mm3 (0.0-0.8); Monocytes % (Auto) 4 % (0-12); Neutrophils # (Auto) 3.8 Thou/mm3 (1.8-7.7); Neutrophils % (Auto) 80 % (37-80); Nucleated Red Blood Cell % 0 /100 WBC (0); Platelet Count 110 Thou/mm3 (140-440); RDW Standard Deviation 54.6 fL (36.4-46.3); Red Blood Count 3.55 Miln/mm3 (4.00-5.20); White Blood Count 4.7 Thou/mm3 (3.6-11.0)
[2024-08-15] MEDS: RINGERS LACTATED 1000 ML 1,000 ML 125 ML IV ×3 (05:29→22:10)
[2024-08-15 05:43] LABS: Partial Thromboplastin Time 34.9 Seconds (22.0-36.0)
[2024-08-15 05:53] LABS: Fibrinogen 720 mg/dL (175-375)
[2024-08-15 06:05] LABS: Alanine Aminotransferase 11 U/L (10-49); Albumin, Serum 2.7 gm/dL (3.5-5.0); Albumin/Globulin Ratio 1.2 (1.2-2.2); Alkaline Phosphatase 190 U/L (46-116); Anion Gap 10 (7-16); Aspartate Amino Transferase 17 U/L (0-34); BUN/Creatinine Ratio 28 Ratio (12-20); Bilirubin,Total 0.5 mg/dL (0.3-1.2); Blood Urea Nitrogen 11 mg/dL (9-23); Calcium 7.6 mg/dL (8.3-10.6); Calcium (Corrected) 8.6 mg/dL (8.5-10.1); Carbon Dioxide 22.5 mMol/L (20.0-31.0); Chloride 104 mMol/L (98-107); Creatinine (Component) 0.4 mg/dL (0.6-1.3); Estimated Creatinine Clearance 173.9 mL/min (>60); Globulin 2.3 gm/dL (2.3-3.5); Glucose 79 mg/dL (74-106); Osmolality,Calculated 270 (275-295); Potassium 3.2 mMol/L (3.4-5.1); Sodium 136 mMol/L (136-145); eGFR > 60 See Note
[2024-08-15] MEDS: POTASSIUM CHLORIDE 20 mEq TABCR 40 MEQ PO (08:21)
[2024-08-15] MEDS: HYDROcodone/APAP 5/325 TABLET 1 TAB PO (10:55)
[2024-08-15] MEDS: VANCOMYCIN/NS 1 GM IVPB 200 ML IV ×2 (11:00→22:06)
--- NOTE | 2024-08-15 13:14 | PC.SS ---
VESSEL SPECIALIST conducted bedside contact with the patient to conduct initial assessment and to discuss discharge planning on behalf of the patient.? Patient resides at home with family.? Patient does not utilize DME.? Patient does not require the use of home oxygen.? Patient is independent with ADL?s.? Patient?s medical surrogate decision maker is spouse, Darryl Jordan.? Patient utilizes [facility] for PCP services.? Patient utilizes [facility] for medication services.? Plan is for the patient to discharge home.? Physical [address] is [address] [place] [address], [place].? No discharge needs identified by the patient.? No further intervention required at this time, social organization professor will be available to address any further concerns.? Next of Kin: Darryl Jordan D/C Plan: Home
[2024-08-15] MEDS: guaiFENesin/COD SYRUP 5 ML UDC 10 ML PO ×2 (15:05→22:47)
--- NOTE | 2024-08-15 15:22 | PC.NURSE ---
Patient has been tachycardic (120-140) . Patient is asymptomatic, denies chest pain, palpitation or any discomfort. Dr. Skaggs aware, no new orders.
--- NOTE | 2024-08-15 15:30 | XR_ITS ---
Examination: Transvaginal ultrasound of the pelvis, complete Technique: Transvaginal sonographic images pelvis performed using brice scale imaging Exam date and time: August 15, 2024 1548 hours INDICATIONS: sepsis 3 days, clinical diagnosis endometritis FINDINGS: Uterus 20 x 7.6 x 4.4 cm Endometrial stripe 11 mm No discrete uterine mass Ovaries obscured by bowel gas IMPRESSION: Limited study No uterine mass or retained products of conception. Recommend transabdominal pelvic sonography repeat follow-up
[2024-08-15 17:08] LABS: Basophils # (Auto) 0.1 Thou/mm3 (0.0-0.2); Basophils % (Auto) 1 % (0-2.5); Eosinophils % (Auto) 0 % (0-10); Hematocrit 29.8 % (36.0-46.0); Immature Granulocytes % (Auto) 6 % (0-0); Immature Granulocytes Auto 0.44 Thou/mm3 (0.00-0.00); Lymphocytes # (Auto) 0.8 Thou/mm3 (1.0-4.8); Lymphocytes % (Auto) 11 % (10-50); Mean Corpuscular HGB Conc 33.6 g/dl (31.0-37.0); Mean Corpuscular Hemoglobin 27.9 pg (25.0-35.0); Mean Corpuscular Volume 83 fL (80-100); Monocytes # (Auto) 0.3 Thou/mm3 (0.0-0.8); Monocytes % (Auto) 4 % (0-12); Neutrophils # (Auto) 5.4 Thou/mm3 (1.8-7.7); Neutrophils % (Auto) 78 % (37-80); Nucleated Red Blood Cell % 0 /100 WBC (0); Platelet Count 121 Thou/mm3 (140-440); RDW Standard Deviation 54.4 fL (36.4-46.3); Red Blood Count 3.59 Miln/mm3 (4.00-5.20); White Blood Count 6.9 Thou/mm3 (3.6-11.0)
[2024-08-15] MEDS: POTASSIUM CHLORIDE 20 mEq TABCR PO (17:57)
--- NOTE | 2024-08-15 20:08 | ESPR_ITS ---
RE: SHARRI MARTINEZ : 1990 DATE OF SERVICE: 08/14/2024 S: The patient has pain at the site of the symphysis pubis. She denies any abdominal pain. She is feeling better. She is voiding and ambulating and tolerating a regular diet. O: Lungs: Clear to auscultation bilaterally. Heart: Tachycardia, irregular rhythm. Abdomen: Nontender. Symphysis pubis tender to deep palpation. Extremities: Nontender. A: 1. endometritis. 2. Sepsis. 3. Symphysis pubis separation. P: Continue vancomycin and Zosyn. Follow culture results. Physical therapy for symphysis separation upon discharge home. DT: 19:13:36 TT: 20:06:00 Ref: [id number] - TID: [id number]
[2024-08-15] MEDS: ACETAMINOPHEN 325 MG TABLET 650 MG PO (20:09)
--- NOTE | 2024-08-15 20:48 | ESPR_ITS ---
RE: SHARRI MARTINEZ : 1990 DATE OF SERVICE: 08/15/2024 S: The patient feels better. She is voiding and ambulating and tolerating a regular diet. She is passing flatus, but she reports some loose stools. O: Vital Signs: Blood pressure 114/78, heart rate 125, respirations 17, temperature 99.3, T-max is 101. Lungs: Clear to auscultation bilaterally. Heart: Tachycardic, but regular rhythm. Abdomen: Bladder distended. Symphysis pubis tenderness to deep palpation. Extremities: Nontender. No edema. LABORATORY DATA: Transvaginal pelvic ultrasound shows no retained products of conception. Bladder showed 900 mL of retained urine. Blood culture shows Strep pyogenes. A: endometritis, sepsis secondary to Strep pyogenes, group A. Continue vancomycin and Zosyn. The patient requires inpatient treatment with IV antibiotics until resolution of sepsis, including afebrile for 48 hours and resolution of the tachycardia. Abernathy catheter placed for urinary retention and 12 hour bladder rest. P: Bladder rest and remove Abernathy catheter in the morning. Hypokalemia, potassium supplementation. I discussed with the patient the nature of her condition and the recommended treatment plan. All questions answered. DT: TT: 20:46:00 Ref: [id number] - TID: [id number] [facility]
[2024-08-15] MEDS: HYDROCORTISONE ACET CR 2.5% 30 GM TUBE PR (21:00)
[2024-08-16] VITALS (8 sets, daily range): BP systolic 124–140; BP diastolic 78–91; PULSE 104–125; RESP 17–96; TEMP 36.3–37.3; O2SAT 94–96
[2024-08-16] MEDS: PIPER/TAZO INJ 3.375 GM in SODIUM CHLORIDE 0.9% (Popper) 50 ML IV ×4 (00:29→18:06)
[2024-08-16] MEDS: guaiFENesin/COD SYRUP 5 ML UDC 10 ML PO ×3 (04:53→22:20)
--- NOTE | 2024-08-16 04:57 | ESPR_ITS ---
RE: SHARRI MARTINEZ : 1990 DATE OF SERVICE: 08/16/2024 SUBJECTIVE: The patient had urinary retention yesterday, which was incidentally discovered at the time of pelvic ultrasound. She had 900 mL of urine in the bladder, although she had been voiding, apparently not completely emptying her bladder. Therefore, a Abernathy catheter was placed for bladder rest. The patient continues to tolerate a regular diet without nausea or vomiting. She reported loose stools C. diff is pending. She denies any chest pain, palpitations, shortness of breath. She denies any headaches, stiff neck, photophobia, flank pain, lower extremity pain or swelling. She has a non productive cough. OBJECTIVE: Vital Signs: Blood pressure 132/91, heart rate 109, respirations 24, temperature 99.1, T-max is 102.9, and pulse ox is 95% on room air. Lungs: Clear to auscultation bilaterally. Heart: Regular rate and rhythm. Abdomen: Nontender, nondistended, soft. No guarding, rebound, or rigidity. Tenderness in the area of the symphysis pubis. Extremities: Nontender. No edema. LABORATORY DATA: Blood culture results preliminarily show Strep pyogenes. Transvaginal pelvic ultrasound shows no uterine mass or retained products of conception. ASSESSMENT AND PLAN: 1. day #6, status post spontaneous vaginal delivery complicated by fever secondary to endometritis with subsequent sepsis with confirmed Strep pyogenes bacteremia. The patient has been on vancomycin and Zosyn 36 hours since admission with continued spiking fevers. Plan is to consult with hospitalist team regarding additional measures. Follow morning labs. 2. Symphysis pubis separation. Requires nonsteroidal anti-inflammatory medication p.r.n. and physical therapy upon discharge. 3. Goals for discharge is afebrile for 48 hours and resolution of tachycardia. DT: 04:01:49 TT: 04:55:00 Ref: [id number] - TID: [id number] MTDD
--- NOTE | 2024-08-16 06:20 | XR_ITS ---
Examination: PA lateral chest 2 views TECHNIQUE: Upright PA lateral chest 2 views Exam date and time: August 16, 2024 at 0804 hours Comparison August 13, 2024 INDICATIONS: Coughing today FINDINGS: Normal heart size Lungs are clear. The osseous structures are intact IMPRESSION: No active disease
[2024-08-16 07:13] LABS: Basophils # (Auto) 0.1 Thou/mm3 (0.0-0.2); Basophils % (Auto) 1 % (0-2.5); Eosinophils % (Auto) 0 % (0-10); Hemoglobin 9.5 g/dL (12.0-16.0); Immature Granulocytes % (Auto) 7 % (0-0); Immature Granulocytes Auto 0.49 Thou/mm3 (0.00-0.00); Lymphocytes # (Auto) 0.9 Thou/mm3 (1.0-4.8); Lymphocytes % (Auto) 13 % (10-50); Mean Corpuscular HGB Conc 32.8 g/dl (31.0-37.0); Mean Corpuscular Hemoglobin 27.8 pg (25.0-35.0); Mean Corpuscular Volume 85 fL (80-100); Monocytes # (Auto) 0.4 Thou/mm3 (0.0-0.8); Monocytes % (Auto) 5 % (0-12); Neutrophils # (Auto) 5.5 Thou/mm3 (1.8-7.7); Neutrophils % (Auto) 75 % (37-80); Nucleated Red Blood Cell % 0 /100 WBC (0); Platelet Count 117 Thou/mm3 (140-440); RDW Standard Deviation 56.3 fL (36.4-46.3); Red Blood Count 3.42 Miln/mm3 (4.00-5.20); White Blood Count 7.3 Thou/mm3 (3.6-11.0)
[2024-08-16] MEDS: RINGERS LACTATED 1000 ML 1,000 ML 125 ML IV (07:35)
[2024-08-16 07:46] LABS: Alanine Aminotransferase 19 U/L (10-49); Albumin, Serum 2.7 gm/dL (3.5-5.0); Albumin/Globulin Ratio 1.3 (1.2-2.2); Alkaline Phosphatase 261 U/L (46-116); Anion Gap 9 (7-16); Aspartate Amino Transferase 33 U/L (0-34); BUN/Creatinine Ratio 18 Ratio (12-20); Bilirubin,Total 0.6 mg/dL (0.3-1.2); Blood Urea Nitrogen 7 mg/dL (9-23); Calcium 7.7 mg/dL (8.3-10.6); Calcium (Corrected) 8.7 mg/dL (8.5-10.1); Carbon Dioxide 25.9 mMol/L (20.0-31.0); Chloride 107 mMol/L (98-107); Creatinine (Component) 0.4 mg/dL (0.6-1.3); Estimated Creatinine Clearance 173.9 mL/min (>60); Globulin 2.1 gm/dL (2.3-3.5); Glucose 68 mg/dL (74-106); Osmolality,Calculated 279 (275-295); Phosphorous 3.2 mg/dL (2.4-5.1); Potassium 3.4 mMol/L (3.4-5.1); Procalcitonin 1.44 ng/ml (0.0-0.49); Sodium 142 mMol/L (136-145); Total Protein 4.8 gm/dL (5.7-8.2); Vancomycin,Trough 6.5 mcg/mL (5.0-10.0); eGFR > 60 See Note
[2024-08-16 07:48] LABS: INR 1.1 (0.9-1.3); Partial Thromboplastin Time 33.4 Seconds (22.0-36.0); Prothrombin Time 11.5 Seconds (9.0-12.2)
[2024-08-16] MEDS: HYDROCORTISONE ACET CR 2.5% 30 GM TUBE PR ×2 (09:27→22:20)
[2024-08-16] MEDS: POTASSIUM CHLORIDE 20 mEq TABCR PO ×2 (09:27→18:06)
[2024-08-16 09:53] LABS: Clostridium Difficile PCR Negative (Negative)
--- NOTE | 2024-08-16 11:56 | PC.LAC ---
Mom states she is and would like to pump. She was given a kit and advised to hand pump. Explained that she would need to use an electric pump in order to maintain a good milk supply especially when from her baby. Mom states that she will have to pump and dump for a while per provider recommendation due to medications she is on. Looked up all medications she is currently taking in [facility], all medications are safe for baby. None of them exceed L3 status and explained that when given the hydrocodone (L3) the half life is 3.8 hours to just pump around 3 hours after it is given. Left copies of the information from Dr. Osman book for mom, nurse and provider to review if needed. Mom understands to stay on a schedule of pumping at least every 2-3 hours including overnight in order to maintain her milk supply while from baby. Also explained that her milk in room temperature is good for up to 4 hours, if she places it on ice it is good for 18 hours. Explained best case scenario would be for someone to come pick it up so it can be stored in the fridge or freezer. mom understood
[2024-08-16] MEDS: VANCOMYCIN/NS 1 GM IVPB 200 ML IV ×2 (13:48→22:13)
[2024-08-16 13:58] LABS: Fibrinogen 773 mg/dL (175-375)
--- NOTE | 2024-08-16 23:29 | ESHP_ITS ---
Documentation for date of: 08/16/24 [facility] History of Present Illness History of present illness: This is a 33-year-old , day 7 spontaneous vaginal delivery without complications on 08/10, with delivery of a viable infant. She had an unremarkable course with no excessive bleeding, fever or tachycardia. She returns to the hospital following 3 days of fever, chills, and suprapubic pain that is worse with coughing. During encounter, she denied foul-smelling urine or vaginal bleed/discharge. Although admission note states foul-smelling discharge, currently denies dysuria, hematuria, urinary frequency or urgency, or vaginal discharge. Her care was complicated by borderline chronic HTN with superimposed preeclampsia without severe features. Denies headaches, fall, trauma, night sweats, chest pain, shortness of breath, productive cough, abdominal pain, N/V/D/C, dark stool or GI bleed, dysuria, hematuria, vaginal bleed or discharge, urinary urgency or frequency. On admission: T102.8, BP 100/63, HR 130, RR 27. Hgb 9.5, baseline around 10. MCV 85. Fibrinogen 674, remainder coag study normal. Sodium 131 > 142, potassium 3.1 > 3.4 after correction, Pro-Calc 8.22 > 1.44, remainder chemistry panel WNL. UA turbid with WBC 59, RBC 51, positive leukocyte esterase. TVUS endometrial thickening of 11 mm, likely change, no evidence of RPOC. Pelvic XR showed diastasis at the symphysis (likely post- change), no pelvic fracture. CXR showed no active disease. UA turbid with WBC 59, RBC 51, positive LE. Blood culture grew strep pyogenes. She was continued on VANCOMYCIN and ZOSYN. Adequately fluid resuscitated. No fever for the last 24 hours. Internal medicine consulted for management of endometriosis as above. PMHx: P66, borderline chronic hypertension, preeclampsia, gestational diabetes PSHx: None MEDS: IBUPROFEN for pain ALLERGIES: NKA FHx: Not relevant. SH: Denies alcohol, tobacco, or drug use. Exam Vital Signs Temp Pulse Resp BP Pulse Ox O2 Del Method 97.4 F 113 H 20 129/90 H 96 Room Air 08/16/24 20:00 08/16/24 20:00 08/16/24 20:00 08/16/24 20:00 08/16/24 20:00 08/16/24 20:00 Narrative Exam GENERAL * Normal-appearing adult female, no apparent distress. HEENT * NCAT.?HUSSAIN. Oral mucosa is moist. Patent Nares NECK * Supple, nontender, no thyromegaly, no meningismus, no JVD, no step offs CHEST * Tachycardic, regular rhythm, no m/g/r * CTAB, no w/r/r. Symmetrical chest rise. No intercostal subcostal retraction * Atraumatic, nontender, no crepitus, symmetrical expansion. ABDOMEN * Soft, flat. No guarding/rebound tenderness/masses. * Bowel sounds presents * Mild tenderness to palpation suprapubic area. EXTREMITIES * Nontender, no cyanosis, no edema * No edema/cyanosis.? SKIN * Warm and dry, no jaundice/rashes. * Superficial erythematous skin lesion over left anterior thigh, nontender, no warmth or discharge. NEUROMUSCULAR * No lumbar or midline, no CVA, no paraspinal muscle spasm or tenderness. * Moves all 4 extremities well, with full ROM and good CSM. * HERNÁNDEZ x4, CN II-XII grossly intact. * No focal neurologic deficits. PSYCHIATRY * Normal mood and affect, cooperative, no SI or HI or hallucinations. Results: Labs 08/16/24 06:29 08/16/24 06:29 Labs: Short CBC 08/16/24 Range/Units 06:29 WBC 7.3 (3.6-11.0) Thou/mm3 Hgb 9.5 L (12.0-16.0) g/dL Hct 29.0 L (36.0-46.0) % Plt Count 117 L (140-440) Thou/mm3 BMP 08/16/24 06:29 Sodium 142 Potassium 3.4 Chloride 107 Carbon Dioxide 25.9 BUN 7 L Creatinine 0.4 L Glucose 68 L Calcium 7.7 L Liver Function 08/16/24 Range/Units 06:29 Total Bilirubin 0.6 (0.3-1.2) mg/dL AST 33 (0-34) U/L ALT 19 (10-49) U/L Alkaline Phosphatase 261 H D (46-116) U/L Albumin 2.7 L (3.5-5.0) gm/dL Quality Measures Quality Measures sepsis Current suspected stage: sepsis Possible source: other () Blood cultures ordered: yes Antibiotic ordered: Yes Medications Home Medications and Allergies Allergies Allergy/AdvReac Type Severity Reaction Status Date / Time No Known Allergies Allergy Verified 08/13/24 18:43 Visit Medications Acetaminophen (Acetaminophen 325 Mg Tablet) 650 mg PO Q4HR PRN PRN Reason: FEVER >101 Stop: 09/13/24 12:13 Last Admin: 08/15/24 20:09 Dose: 650 mg Hydrocodone Bitart/Acetaminophen (Hydrocodone/Apap 5/325 Tablet) 1 tab PO Q6HR PRN PRN Reason: PAIN SCALE 4-10(Mod-Sev Stop: 08/18/24 23:05 Last Admin: 08/15/24 10:55 Dose: 1 tab Guaifenesin/Codeine Phosphate (Guaifenesin/Cod Syrup 5 Ml Udc) 10 ml PO Q6H PRN; Protocol PRN Reason: COUGH Stop: 09/14/24 14:41 Last Admin: 08/16/24 22:20 Dose: 10 ml Hydrocortisone (Hydrocortisone Acet Cr 2.5% 30 Gm Tube) 0 gm WV BID ISABEL Stop: 09/14/24 20:59 Last Admin: 08/16/24 22:20 Dose: 1 appln Lactated Ringer's (Lactated Ringers) 1,000 mls @ 125 mls/hr IV .Q8H ISABEL Stop: 09/12/24 23:07 Last Admin: 08/16/24 22:50 Dose: Not Given Vancomycin/Sodium Chloride (Vancomycin/Ns 1 Gm Ivpb) 200 mls @ 120 mls/hr IV Q8HR ISABEL; Protocol Stop: 08/22/24 21:59 Last Admin: 08/16/24 22:13 Dose: 120 mls/hr Piperacillin Sod/Tazobactam (Sod 3.375 gm/ Sodium Chloride) 50 mls @ 100 mls/hr IV Q6HR ISABEL Stop: 08/22/24 17:59 Last Admin: 08/16/24 18:06 Dose: 100 mls/hr Pharmacy Consult (Vancomycin Pharmacy To Dose 1 Each Each) 1 each IV QDAY PRN PRN Reason: CONSULT Stop: 09/14/24 14:44 Discontinued Medications Acetaminophen (Acetaminophen 500 Mg Tablet) 1,000 mg PO X1 ONE Stop: 08/13/24 19:06 Last Admin: 08/13/24 19:45 Dose: Not Given Hydromorphone HCl (Hydromorphone Inj 2 Mg/Ml Vial) 0.5 mg IVP PRN IASBEL Stop: 08/18/24 20:59 Last Admin: 08/14/24 11:26 Dose: 0.5 mg Acetaminophen (Ofirmev Inj) 1,000 mg in 100 mls @ 250 mls/hr IV X1 ONE Stop: 08/13/24 19:54 Last Infusion: 08/13/24 20:30 Dose: Infused Sodium Chloride (Ns) 1,000 mls @ 999 mls/hr IV .Q1H1M ONE Stop: 08/13/24 20:30 Last Infusion: 08/13/24 21:26 Dose: Infused Clindamycin/Sodium Chloride (Cleocin/Ns Ivpb) 600 mg in 50 mls @ 100 mls/hr IV X1 ONE Stop: 08/13/24 20:01 Last Infusion: 08/13/24 20:37 Dose: Infused Gentamicin Sulfate/Sodium Chloride 80 mg/ IV Miscellaneous Supplies 50 mls @ 50 mls/hr IV X1 [facility] Stop: 08/20/24 19:29 Piperacillin/Tazobactam/Dextrose (Zosyn) 50 mls @ 100 mls/hr IV X1 ONE Stop: 08/13/24 20:59 Last Infusion: 08/13/24 21:26 Dose: Infused Vancomycin HCl 1,000 mg/ (Sodium Chloride) 250 mls @ 150 mls/hr IV X1 ONE Stop: 08/13/24 22:09 Last Infusion: 08/13/24 23:32 Dose: Infused Sodium Chloride (Ns) 1,000 mls @ 999 mls/hr IV .Q1H1M ONE Stop: 08/13/24 21:39 Last Infusion: 08/13/24 21:26 Dose: Infused Piperacillin Sod/Tazobactam (Sod 3.375 gm/ Sodium Chloride) 50 mls @ 12.5 mls/hr IV Q8HR [facility]; Protocol Stop: 08/20/24 05:59 Last Admin: 08/15/24 15:05 Dose: 12.5 mls/hr Potassium Chloride (Kcl Ivpb) 10 meq in 100 mls @ 100 mls/hr IV Q1H ISABEL Stop: 08/14/24 03:14 Last Infusion: 08/14/24 04:24 Dose: Infused Vancomycin/Sodium Chloride (Vancomycin/Ns 1 Gm Ivpb) 200 mls @ 120 mls/hr IV X1 ONE Stop: 08/14/24 10:54 Last Admin: 08/14/24 14:58 Dose: 120 mls/hr Vancomycin/Sodium Chloride (Vancomycin/Ns 1 Gm Ivpb) 200 mls @ 120 mls/hr IV Q12H [facility] Stop: 08/21/24 21:59 Last Admin: 08/15/24 11:00 Dose: 120 mls/hr Ondansetron HCl (Ondansetron Inj 2 Mg/Ml Inj 2 Ml) 4 mg IV X1 ONE; Protocol Stop: 08/13/24 21:00 Last Admin: 08/13/24 21:35 Dose: 4 mg Potassium Chloride (Potassium Chloride 20 Meq Tabcr) 40 meq PO X1 ONE Stop: 08/15/24 06:55 Last Admin: 08/15/24 08:21 Dose: 40 meq Potassium Chloride (Potassium Chloride 20 Meq Tabcr) 20 meq PO BIDWM [facility] Stop: 09/14/24 17:29 Last Admin: 08/16/24 18:06 Dose: 20 meq Potassium Phos/Sodium Phos (Naph,[facility] Mbdb 1 Packet (1.5 Gm)) 1 packet PO X1 ONE Stop: 08/13/24 23:18 Last Admin: 08/14/24 01:57 Dose: 1 packet Assessment & Plan Plan In summary: 33-year-old female G6, P6, day 5 uncomplicated spontaneous vaginal delivery, with fever and chills. Admitted for sepsis in setting of endometritis and GBS bacteremia. Patient recommendations from infectious disease team. Sepsis endometriotic GBS bacteremia UTI S/p spontaneous vaginal delivery Had uncomplicated spontaneous vaginal delivery on 08/10. G6, P6, no history of section. Returning with 3 days of fever and chills. Met 3/4 SIRS criteria with Tmax 102.9, RR 24, and HR 145 with signs of EOD i.e. troponin 0.054. TVUS endometrial thickening of 11 mm, likely change, no evidence of RPOC. Pelvic XR showed diastasis at the symphysis (likely post- change), no pelvic fracture. CXR showed no active disease. UA turbid with WBC 59, RBC 51, positive LE. Blood cutlture 08/13 grew Strep pyogenes, usually Has been on fluids, ZOSYN and VANCOMYCIN. No fever in 24 hours. No leukocytosis. Adequately fluid resuscitated, will decrease maintenance rate. May discharge if asymptomatic, 48H blood culture negative, afebrile for 48 hours. ? No indication for VANCOMYCIN given overall improvement, will discontinue. ? Continue with ZOSYN (08/15 to present), de-escalate if ID agrees. ? Continue gentle fluid maintenance at 60 cc/H ? Endometrial culture usually not recommended, likely show contaminant ? Pending repeat blood and urine culture ? Pending ID recommendations NSTEMI, likely type 2 Tachycardia Presentation, troponin 0.054. No EKG obtained. Likely type II in settings of sepsis. Tachycardia improving with fluids, HR 145 > 113. ? Pending EKG ? Pending echo as we continue fluids ? Repleted potassium ? Pending magnesium Chronic normocytic anemia Hgb 9.5, baseline around 10. No signs or symptoms of active bleed. ? Recommended outpatient workup for chronic anemia ? Recommended iron therapy once infection resolves ? Transfuse if Hgb less than 7 Skin lesion of left anterior thigh Noted on exam, about 30*20 mm erythematous lesion, nonpruritic, nontender, no discharge. Patient believes she had an insect bite last week. Less likely to be source of bacteremia. ? Wound care Elevated fibrinogen Fibrinogen 674 > 720 > 773. Likely acute phase reaction secondary to and delivery. ? Management per primary team. day 7 Symphysis pubis separation ? Managed by primary team. Appreciate the opportunity to participate in the care of this patient. Patient case was discussed with attending, Michael Chawla MD. Natty Beard DO PGYI Attending Provider Attestation/Addendum Pt was evaluated and plan formulated together with the housestaff team. I have reviewed the residents note above and agree with most of its content. Please refer to the residents note for additional details. The patient is a 33-year-old female, status post spontaneous vaginal delivery on 08/10 without complications. She was discharged home on day #1 in stable condition with no significant complaints. However, she subsequently developed lower pelvic pain radiating to the vagina, fever, chills, foul-smelling vaginal discharge, and discomfort over the pubic bone when coughing or crossing her legs. She was readmitted on 02/17, and blood cultures grew Streptococcus pyogenes. She has been on vancomycin and piperacillin- tazobactam for 36 hours but continues to have spiking fevers. - Repeat blood cultures to assess for persistent bacteremia. - DC vancomycin, keep piperacillin-tazobactam now. Consider de-escalation based on sensitivity results. - Monitor for signs of sepsis or worsening infection. - Consult Infectious Disease for further antibiotic recommendations. - Cardiac echo.
--- NOTE | 2024-08-16 23:52 | EKG_ITS ---
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
--- NOTE | 2024-08-16 23:54 | PC.NURSE ---
seen and examined by Dr. Chawla.
[2024-08-16 23:59] LABS: Lactate (Lactic Acid) 0.9 mMol/L (0.4-2.0)
[2024-08-17] VITALS: BP 123/83; PULSE 107; PULSE 116; RESP 19; TEMP 36.3; O2SAT 95
[2024-08-17] MEDS: POTASSIUM CHLORIDE 20 mEq TABCR 40 MEQ PO (01:19)
[2024-08-17] MEDS: RINGERS LACTATED 1000 ML 1,000 ML 60 ML IV (01:27)
[2024-08-17] MEDS: PIPER/TAZO INJ 3.375 GM in SODIUM CHLORIDE 0.9% (Popper) 50 ML IV ×4 (01:27→17:39)
[2024-08-17] MEDS: POTASSIUM CHL 10 mEq IVPB 10 MEQ/100 ML BAG 100 MEQ IV ×2 (02:13→02:55)
[2024-08-17 04:00] VITALS: BP 132/93; PULSE 105; RESP 18; TEMP 36.6; O2SAT 95
[2024-08-17 05:01] LABS: Lactate (Lactic Acid) 0.8 mMol/L (0.4-2.0)
[2024-08-17 05:08] LABS: Basophils # (Auto) 0.1 Thou/mm3 (0.0-0.2); Basophils % (Auto) 1 % (0-2.5); Eosinophils # (Auto) 0.1 Thou/mm3 (0.0-0.5); Eosinophils % (Auto) 1 % (0-10); Hematocrit 28.4 % (36.0-46.0); Hemoglobin 9.2 g/dL (12.0-16.0); Immature Granulocytes % (Auto) 9 % (0-0); Immature Granulocytes Auto 0.84 Thou/mm3 (0.00-0.00); Lymphocytes # (Auto) 1.4 Thou/mm3 (1.0-4.8); Lymphocytes % (Auto) 14 % (10-50); Mean Corpuscular HGB Conc 32.4 g/dl (31.0-37.0); Mean Corpuscular Hemoglobin 27.5 pg (25.0-35.0); Mean Corpuscular Volume 85 fL (80-100); Monocytes # (Auto) 0.5 Thou/mm3 (0.0-0.8); Monocytes % (Auto) 5 % (0-12); Neutrophils % (Auto) 71 % (37-80); Nucleated Red Blood Cell % 0 /100 WBC (0); Platelet Count 163 Thou/mm3 (140-440); RDW Standard Deviation 56.6 fL (36.4-46.3); Red Blood Count 3.34 Miln/mm3 (4.00-5.20); White Blood Count 9.9 Thou/mm3 (3.6-11.0)
[2024-08-17 05:32] LABS: Magnesium 1.8 mg/dL (1.6-2.6)
--- NOTE | 2024-08-17 07:00 | PC.NURSE ---
seen and examined by Dr. Skaggs, Clarified tele monitor order- w/ orders made and carried out.
--- NOTE | 2024-08-17 07:27 | ESPR_ITS ---
Subjective Subjective Interval history: Patient feels better. No foul-smelling discharge. No vaginal itching. No vaginal bleeding. She is tolerating her diet, she is voiding completely, she is ambulating with difficulty due to pain at symphysis pubis, getting adequate pain relief with ibuprofen as needed. Loose stools but no diarrhea. No crampy abdominal pain. She denies any headache photophobia stiff neck or flank pain. She denies any chest pain shortness of breath or palpitations. Her cough is improved Exam Vital Signs Temp Pulse Resp BP Pulse Ox O2 Del Method 97.8 F 105 H 18 132/93 H 95 Room Air 08/17/24 04:00 08/17/24 04:00 08/17/24 04:00 08/17/24 04:00 08/17/24 04:00 08/17/24 04:00 Routine Respiratory Exam Comments: Lungs clear to auscultation Routine Cardiovascular Exam Comments: Tachycardic but regular rhythm Routine Abdominal Exam Comments: Nontender, fundus is firm well below umbilicus Routine Extremities Exam Comments: Nontender Routine Psychiatric Exam Comments: No depression or anxiety Additional findings Additional findings: C. difficile titer negative Chest x-ray negative Echocardiogram pending Objective Labs 08/17/24 04:48 08/16/24 06:29 Labs: Laboratory Results - last 24 hr 08/15/24 08/16/24 08/16/24 22:45 06:29 23:42 WBC 7.3 RBC 3.42 L Hgb 9.5 L Hct 29.0 L MCV 85 MCH 27.8 MCHC 32.8 RDW Std Deviation 56.3 H Plt Count 117 L Neut % (Auto) 75 Lymph % (Auto) 13 [facility] % (Auto) 5 Eos % (Auto) 0 Baso % (Auto) 1 Neut # (Auto) 5.5 Lymph # (Auto) 0.[address] [facility] # (Auto) 0.4 Eos # (Auto) 0.0 Baso # (Auto) 0.1 Immature Gran # (Auto) 0.49 H Absolute Nucleated RBC 0.00 Immature Gran % 7 H Nucleated RBC % 0 PT 11.5 INR 1.1 APTT 33.4 Fibrinogen 773 H* Sodium 142 Potassium 3.4 Chloride 107 Carbon Dioxide 25.9 Anion Gap 9 BUN 7 L Creatinine 0.4 L Estim Creat Clear Calc 173.9 eGFR > 60 BUN/Creatinine Ratio 18 Glucose 68 L Calculated Osmolality 279 Lactic Acid 0.9 Calcium 7.7 L Corrected Calcium 8.7 Phosphorus 3.2 Magnesium Total Bilirubin 0.6 AST 33 ALT 19 Alkaline Phosphatase 261 H D Total Protein 4.8 L Albumin 2.7 L Globulin 2.1 L Albumin/Globulin Ratio 1.3 Procalcitonin 1.44 H Stl C. diff Tox B Gene Negative Vancomycin Trough 6.5 08/17/24 04:48 WBC 9.9 RBC 3.34 L Hgb 9.2 L Hct 28.4 L MCV 85 MCH 27.5 MCHC 32.4 RDW Std Deviation 56.6 H Plt Count 163 D Neut % (Auto) 71 Lymph % (Auto) 14 [facility] % (Auto) 5 Eos % (Auto) 1 Baso % (Auto) 1 Neut # (Auto) 7.0 Lymph # (Auto) 1.4 [facility] # (Auto) 0.5 Eos # (Auto) 0.1 Baso # (Auto) 0.1 Immature Gran # (Auto) 0.84 H Absolute Nucleated RBC 0.00 Immature Gran % 9 H Nucleated RBC % 0 PT INR APTT Fibrinogen Sodium Potassium Chloride Carbon Dioxide Anion Gap BUN Creatinine Estim Creat Clear Calc eGFR BUN/Creatinine Ratio Glucose Calculated Osmolality Lactic Acid 0.8 Calcium Corrected Calcium Phosphorus Magnesium 1.8 Total Bilirubin AST ALT Alkaline Phosphatase Total Protein Albumin Globulin Albumin/Globulin Ratio Procalcitonin Stl C. diff Tox B Gene Vancomycin Trough Assessment & Plan Assessment Comment Assessment comment: status post spontaneous vaginal delivery complicated by readmission to the hospital with endometritis and sepsis due to strep pyogenes confirmed bacteremia Afebrile greater than 36 hours Tachycardia persistent but mostly less than 120s Vancomycin discontinued Continuing on Zosyn Repeat blood culture drawn Renal function, liver function, coag profile, H&H all stable (elevated fibrinogen secondary to hormones and expect spontaneous resolution.) Appreciate hospitalist recommendations: will defer to hospitalist regarding timing of discharge and discharge antibiotics. Tachycardia Echocardiogram pending Med telemetry Loose stools C. difficile negative Symphysis pubis separation Physical therapy upon discharge home Nonsteroidal anti-inflammatories as needed Expect to have difficulty walking with pain for several weeks Breast-feeding Okay to resume breast pumping and storage of milk Preeclampsia without severe features and superimposed borderline chronic hypertension Blood pressure controlled without antihypertensives Blood pressure will improve with time will follow as outpatient with home blood pressure logs Time Spent With Patient Time: Total time spent is greater than 50% in coordination of care (as documented) at patient's floor/unit and/or counseling patient:
[2024-08-17 08:00] VITALS: BP 144/85; PULSE 100; PULSE 110; RESP 18; TEMP 36.1; O2SAT 92
[2024-08-17] MEDS: HYDROCORTISONE ACET CR 2.5% 30 GM TUBE PR ×2 (08:24→22:30)
[2024-08-17 10:40] LABS: Lactate (Lactic Acid) 1.9 mMol/L (0.4-2.0)
--- NOTE | 2024-08-17 11:46 | PC.SS ---
Follow up note: SS met with PT and they recommended FWW. SS faxed order request to Dr. Grande's office. DME order form placed on chart as well. Patient confirmed she wants the FWW. Her d/c address: [address], [place]. Patient requesting FWW be delivered to patient's room.
[2024-08-17 12:00] VITALS: BP 130/82; PULSE 101; PULSE 108; RESP 21; TEMP 36.6; O2SAT 95
[2024-08-17 13:13] LABS: Lactate (Lactic Acid) 1.1 mMol/L (0.4-2.0)
--- NOTE | 2024-08-17 14:20 | PD.RESPRO ---
Documentation for date of: 08/17/24 Subjective Subjective Interval history: Patient seen at bedside. No acute overnight events. She is a 33-year-old female 6 para 6 on day 7 after having a spontaneous vaginal delivery on 08/10 who presented with fever and suprapubic pain. She was admitted for sepsis secondary to endometritis and was started on IV Zosyn and vancomycin. Vancomycin has been discontinued but patient continues to be on Zosyn. Currently fever free for the last [address] Campos consulted, repeat pending cultures pending. 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 Eyes open, symmetrical, & clear CARDIO: No chest pain on palpation. Tachycardic, regular rhythm, no murmurs PULM: No noted coughing/dyspnea. Lungs CTA B/L GI: Abdomen soft, nondistended, no pain on palpation. BSx4 URO/BUSINESS CONTINUITY MANAGEMENT DIRECTOR:: Pubic region tender to palpation SKIN/MSK/EXT: No wounds/rashes/edema/amputations, no pain on palpation. Pedal pulses present B/L Objective Labs 08/18/24 06:12 08/18/24 06:12 Labs: Laboratory Results - last 24 hr 08/16/24 08/17/24 08/17/24 23:42 04:48 10:11 WBC 9.9 RBC 3.34 L Hgb 9.2 L Hct 28.4 L MCV 85 MCH 27.5 MCHC 32.4 RDW Std Deviation 56.6 H Plt Count 163 D Neut % (Auto) 71 Lymph % (Auto) 14 [place] % (Auto) 5 Eos % (Auto) 1 Baso % (Auto) 1 Neut # (Auto) 7.0 Lymph # (Auto) 1.4 [place] # (Auto) 0.5 Eos # (Auto) 0.1 Baso # (Auto) 0.1 Immature Gran # (Auto) 0.84 H Absolute Nucleated RBC 0.00 Immature Gran % 9 H Nucleated RBC % 0 Lactic Acid 0.9 0.8 1.9 Magnesium 1.8 08/17/24 12:40 WBC RBC Hgb Hct MCV MCH MCHC RDW Std Deviation Plt Count Neut % (Auto) Lymph % (Auto) [place] % (Auto) Eos % (Auto) Baso % (Auto) Neut # (Auto) Lymph # (Auto) [place] # (Auto) Eos # (Auto) Baso # (Auto) Immature Gran # (Auto) Absolute Nucleated RBC Immature Gran % Nucleated RBC % Lactic Acid 1.1 Magnesium Quality Measures Quality Measures sepsis Current suspected stage: sepsis Possible source: other () Blood cultures ordered: yes Antibiotic ordered: Yes Assessment & Plan Assessment Current Active Medications: Generic Name Dose Route Start Last Admin Trade Name Freq PRN Reason Stop Dose Admin Acetaminophen 650 mg 08/14/24 12:14 08/15/24 20:09 Acetaminophen 325 Mg Tablet PO 09/13/24 12:13 650 mg Q4HR PRN Administration FEVER >101 Hydrocodone Bitart/Acetaminophen 1 tab 08/13/24 23:06 08/15/24 10:55 Hydrocodone/Apap 5/325 Tablet PO 08/18/24 23:05 1 tab Q6HR PRN Administration PAIN SCALE 4-10(Mod-Sev Guaifenesin/Codeine Phosphate 10 ml 08/15/24 14:42 08/16/24 22:20 Guaifenesin/Cod Syrup 5 Ml Udc PO 09/14/24 14:41 10 ml Q6H PRN Administration COUGH Protocol Hydrocortisone 0 gm 08/15/24 21:00 08/17/24 08:24 Hydrocortisone Acet Cr 2.5% 30 Gm Tube ND 09/14/24 20:59 1 appln BID ISABEL Administration Piperacillin Sod/Tazobactam 50 mls @ 100 mls/hr 08/15/24 18:00 08/17/24 11:42 Sod 3.375 gm/ Sodium Chloride IV 08/22/24 17:59 100 mls/hr Q6HR ISABEL Administration Plan Summary: The patient is a 33-year-old female greater 6 para 6 and day 7 was admitted for sepsis secondary to endometritis #Sepsis # endometritis #Day 7 She is a 33-year-old female 6 para 6 on day 7 after having a spontaneous vaginal delivery on 02/14 who presented with fever and suprapubic pain. She was admitted for sepsis secondary to endometritis and was started on IV Zosyn and vancomycin. Blood culture on 08/13/2024 returned positive for strep pyogenes, pansensitive. Vancomycin has been discontinued but patient continues to be on Zosyn. Currently fever free for the last 48 hours. Plan: -Continue IV Zosyn -Pending repeat blood cultures -ID consulted, appreciate recommendations -Continue to monitor vital signs #Elevated troponin levels #Type II NSTEMI On admission, troponin level was 0.05. Patient denies any chest pain and EKG was unremarkable. Plan: -Continue to monitor #Pubic pain #Symphysis pubis diastasis The patient complained of pubic pain on admission, a pelvic x-ray was done which showed diastases and a pubic symphysis as complication of vaginal delivery. Plan: -Pain management -Physical therapy #Normocytic anemia The patient's looks to have chronic anemia with baseline around 10, possibly changes. Will continue to monitor and possibly recommend outpatient workup Health maintenance: Dispo: MedSurg Diet:Regular diet DVT: SCDs Abernathy: None Lines: Peripheral PT: Ordered Code: Full Case was discussed with Dr Smith PGY-2 and attending physician, Dr Gera Casas MD PGY1 Disclaimer: This note was dictated by speech recognition. Minor errors in clinical research spec may be present due to voice recognition software. Patient examined and case discussed with the team including attending physician. Note reviewed, I agree with the care plan as documented. Ms Jordan is a pleasant 33 year old female who is s/p normal delivery. Hospitalist team was consulted for sepsis. Patient is improving on IV Zosyn, has remained afebrile and WBC wnl. Patient tolerating diet, adequate urine output and mentation is at baseline. Dispo: Anticipate DC in 24 hours. RN to ambulate patient. - Justus Smith MD, PGY 2 Disclaimer: The document bellow may not be free of grammatical/phonetic/typographic errors due to use of voice recognition software. This does not dissuade from the commitment to providing health care with the patient's best interest in mind. Attending Provider Attestation/Addendum I have examined the patient, reviewed labs and imaging findings, discussed the case with the resident(s), and reviewed entered orders. I agree with the plan of care as outlined in this note, with these additional summaries/recommendations: Patient seen at bedside. No acute overnight events. Today patient reports she feels well. She worked with physical therapy earlier in the day and does endorse mild/moderate pubic pain secondary to symphysis pubis separation. Otherwise patient has no other symptoms to report at this time and states she is currently pumping and storing her breastmilk. Hospitalist team was consulted for strep pyogenes bacteremia. Blood cultures from 08/13/2024 grew strep pyogenes (group A) and patient was started on vancomycin and Zosyn. Patient appears to have improved significantly and no longer spiking fevers and leukocytosis has resolved. Agree with continuing IV Zosyn for now. Typical treatment duration for strep pyogenes bacteremia is 7 to 10 days. Infectious disease was consulted and we will follow-up for recommendations. If patient continues to clinically improve and remains afebrile she can likely be discharged in the next 24 to 48 hours with either ampicillin or azithromycin or clindamycin based on sensitivities. Appreciate OB Recs on which antibiotic is safest with breast-feeding. We will also follow-up with infectious disease and will likely require an additional 4 to 5 days of oral antibiotics depending on when patient is discharged. Patient was noted to have elevated troponins previously which is most likely secondary to demand ischemia in the setting of sepsis unrelated to coronary artery disease. Echocardiogram was ordered and pending. Repeat hematology and chemistry panel in AM. Patient updated on the plan and in agreement. Dr. Gera MD
--- NOTE | 2024-08-17 14:25 | PC.PT ---
PT eval only. Patient is I with transfers and ambulation with FWW.
[2024-08-17 16:00] VITALS: BP 141/88; PULSE 87; PULSE 93; RESP 17; TEMP 36.4; O2SAT 95
[2024-08-17] MEDS: guaiFENesin/COD SYRUP 5 ML UDC 10 ML PO (17:39)
[2024-08-17 20:00] VITALS: BP 137/78; PULSE 95; RESP 16; TEMP 37.2; O2SAT 96
--- NOTE | 2024-08-17 23:52 | ECHO_ITS ---
Transthoracic Echo Report Ht (in): 60 Wt (lb): 153 Exam Location: Echo Lab Status: Inpatient Sales Service Promoter: AZRA Slade^^^^ Indications: Procedure Performed: BP: 144 / 88 HR: 110 Technical Quality: Fair MEASUREMENTS (Male / Female) Normal Values 2D ECHO LV Diastolic Diameter PLAX 5.5 cm 4.2 - 5.9 / 3.9 - 5.3 cm LV Systolic Diameter PLAX 3.6 cm IVS Diastolic Thickness 0.8 cm 0.6 - 1.0 / 0.6 - 0.9 cm LVPW Diastolic Thickness 1.1 cm 0.6 - 1.0 / 0.6 - 0.9 cm LV Relative Wall Thickness 0.4 LVOT Diameter 1.9 cm Aortic Root Diameter 2.8 cm LA Systolic Diameter LX 3.0 cm 3.0 - 4.0 / 2.7 - 3.8 cm LV Ejection Fraction MOD BP 61.4 % >= 55 % LV Cardiac Index MOD BP 6011.5 cm?/min?m? LV Ejection Fraction MOD 4C 64.8 % LV Cardiac Index MOD 4C 7130.4 cm?/min?m? LV Ejection Fraction 4C AL 65.6 % LV Cardiac Index 4C AL 7259.9 cm?/min?m? LV Ejection Fraction MOD 2C 59.0 % LV Cardiac Index MOD 2C 5107.6 cm?/min?m? LV Ejection Fraction 2C AL 60.0 % LV Cardiac Index 2C AL 5250.2 cm?/min?m? LA Volume Index 38.5 cm?/m? 16 - 28 cm?/m? Ascending Aorta Diameter 2.5 cm DOPPLER AV Peak Velocity 176.0 cm/s AV Peak Gradient 12.4 mmHg AV Mean Gradient 8.0 mmHg AV Velocity Time Integral 32.9 cm AI Peak Velocity 321.0 cm/s AI Peak Gradient 41.2 mmHg AI Pressure Half Time 295.5 ms LVOT Peak Velocity 111.0 cm/s LVOT Peak Gradient 4.9 mmHg LVOT Velocity Time Integral 18.4 cm LVOT Cardiac Index 3297.7 cm?/min?m? AV Area Cont Eq vti 1.6 cm? AV Area Cont Eq pk 1.8 cm? MV Area PHT 2.2 cm? MR Peak Velocity 566.5 cm/s MR Peak Gradient 128.4 mmHg Mitral E Point Velocity 98.0 cm/s Mitral A Point Velocity 81.5 cm/s Mitral E to A Ratio 1.2 LV E' Lateral Velocity 13.8 cm/s Mitral E to LV E' Lateral Ratio 7.1 LV E' Septal Velocity 10.9 cm/s Mitral E to LV E' Septal Ratio 9.0 TR Peak Velocity 256.3 cm/s TR Peak Gradient 26.3 mmHg PV Peak Velocity 121.0 cm/s PV Peak Gradient 5.9 mmHg RVOT Peak Velocity 68.7 cm/s FINDINGS Left Ventricle Normal left ventricular size, wall thickness, systolic function with no obvious regional wall motion abnormalities. Normal left ventricular diastolic filling pattern for age. The ejection fraction is visually estimated at 55-60 %. Right Ventricle The right ventricle is normal in size and systolic function. The estimated right ventricular systolic pressure, 32 mmHg. Left Atrium The left atrium is normal by two-dimensional, color flow and Doppler imaging with no structural abnormalities, no thrombus formation present. Right Atrium The right atrium is normal by two-dimensional imaging, color flow and Doppler imaging with no structural abnormalities, no thrombus formation present. Atrial Septum The interatrial septum appears normal with no evidence of a shunt. Aorta The aorta is normal by two-dimensional, color flow and Doppler interrogation. Mitral Valve Moderate mitral regurgitation. Mild mitral annular calcification. Aortic Valve Trace aortic valve regurgitation. Tricuspid Valve There is mild tricuspid valve regurgitation. Pulmonic Valve Trivial pulmonic valve regurgitation. Vessels The pulmonary artery appears normal. The inferior vena cava pulmonary and hepatic veins appear normal. Pericardium The pericardium is normal by two-dimensional imaging. There is no significant pericardial effusion. CONCLUSIONS indication: Sepsis LV appears normal with EF 55-60% RV appears normal with RVSP of 32 mmHg MV has moderate MR & mild MAC AOV has trace AI TV has mild TR Jennifer Murphy (Electronically Signed) Final Date: 20 August 2024 13:43
[2024-08-18] VITALS: BP 124/78; PULSE 89; PULSE 90; RESP 16; TEMP 36.1; O2SAT 94
[2024-08-18] MEDS: PIPER/TAZO INJ 3.375 GM in SODIUM CHLORIDE 0.9% (Popper) 50 ML IV ×2 (00:06→05:27)
--- NOTE | 2024-08-18 03:35 | PD.LDPPPRG ---
Subjective Subjective Interval history: Patient denies any problem or complaint. She has got adequate pain relief from her discomfort at the area of the symphysis pubis. She is tolerating a regular diet. She is passing flatus. She denies any diarrhea. She denies any vaginal bleeding. She denies any vaginal discharge. She denies any chest pain palpitations shortness of breath or lower extremity pain. She no longer has cough. She denies any headache, change in vision, photophobia, flank pain or dysuria. She denies any abdominal pain. Exam Vital Signs Temp Pulse Resp BP Pulse Ox O2 Del Method 97.0 F 89 16 124/78 94 L Room Air 08/18/24 00:00 08/18/24 00:00 08/18/24 00:00 08/18/24 00:00 08/18/24 00:00 08/18/24 00:00 Routine Respiratory Exam Comments: Clear to auscultation bilaterally Routine Cardiovascular Exam Comments: Regular rate and rhythm Routine Abdominal Exam Comments: Soft, nontender. No guarding rebound or rigidity. Tenderness over the site of the symphysis pubis. Routine Extremities Exam Comments: Tender or edema. Objective Labs 08/17/24 04:48 08/16/24 06:29 Labs: Laboratory Results - last 24 hr 08/17/24 08/17/24 08/17/24 04:48 10:11 12:40 WBC 9.9 RBC 3.34 L Hgb 9.2 L Hct 28.4 L MCV 85 MCH 27.5 MCHC 32.4 RDW Std Deviation 56.6 H Plt Count 163 D Neut % (Auto) 71 Lymph % (Auto) 14 [place] % (Auto) 5 Eos % (Auto) 1 Baso % (Auto) 1 Neut # (Auto) 7.0 Lymph # (Auto) 1.4 [place] # (Auto) 0.5 Eos # (Auto) 0.1 Baso # (Auto) 0.1 Immature Gran # (Auto) 0.84 H Absolute Nucleated RBC 0.00 Immature Gran % 9 H Nucleated RBC % 0 Lactic Acid 0.8 1.9 1.1 Magnesium 1.8 Assessment & Plan Assessment Comment Assessment comment: status post spontaneous vaginal delivery complicated by readmission to the hospital with endometritis and sepsis due to strep pyogenes confirmed bacteremia Afebrile greater than 60 hours Tachycardia resolved Continuing on Zosyn Repeat blood culture negative for growth after 24 hours. Renal function, liver function, coag profile, H&H all stable (elevated fibrinogen secondary to hormones and expect spontaneous resolution.) Symphysis pubis separation Physical therapy upon discharge home Nonsteroidal anti-inflammatories as needed Expect to have difficulty walking with pain for several weeks Breast-feeding Breast pumping and storage of milk Preeclampsia without severe features and superimposed borderline chronic hypertension Blood pressure slightly elevated but no need for antihypertensives. Home BP monitoring twice daily upon discharge and will call if > 160/110. Iron deficiency anemia Iron supplementation with Vitamin upon discharge. Plan Comment Plan Comment: Cleared for Discharge from the OB standpoint. Follow up office in 1 week. Will need another
[2024-08-18 04:00] VITALS: BP 125/74; PULSE 90; PULSE 95; RESP 16; TEMP 36.6; O2SAT 97
[2024-08-18 06:41] LABS: Basophils # (Auto) 0.1 Thou/mm3 (0.0-0.2); Basophils % (Auto) 1 % (0-2.5); Eosinophils # (Auto) 0.1 Thou/mm3 (0.0-0.5); Eosinophils % (Auto) 1 % (0-10); Hematocrit 28.1 % (36.0-46.0); Hemoglobin 9.2 g/dL (12.0-16.0); Immature Granulocytes % (Auto) 9 % (0-0); Immature Granulocytes Auto 1.27 Thou/mm3 (0.00-0.00); Lymphocytes # (Auto) 2.4 Thou/mm3 (1.0-4.8); Lymphocytes % (Auto) 18 % (10-50); Mean Corpuscular HGB Conc 32.7 g/dl (31.0-37.0); Mean Corpuscular Volume 85 fL (80-100); Monocytes # (Auto) 0.6 Thou/mm3 (0.0-0.8); Monocytes % (Auto) 4 % (0-12); Neutrophils # (Auto) 9.2 Thou/mm3 (1.8-7.7); Neutrophils % (Auto) 68 % (37-80); Nucleated Red Blood Cell # 0.02 Thou/mm3 (0.00-0.00); Nucleated Red Blood Cell % 0 /100 WBC (0); Platelet Count 188 Thou/mm3 (140-440); RDW Standard Deviation 56.6 fL (36.4-46.3); Red Blood Count 3.29 Miln/mm3 (4.00-5.20); White Blood Count 13.6 Thou/mm3 (3.6-11.0)
[2024-08-18 07:17] LABS: Albumin, Serum 2.7 gm/dL (3.5-5.0); Anion Gap 10 (7-16); BUN/Creatinine Ratio 18 Ratio (12-20); Blood Urea Nitrogen 7 mg/dL (9-23); Calcium 7.6 mg/dL (8.3-10.6); Calcium (Corrected) 8.6 mg/dL (8.5-10.1); Carbon Dioxide 25.2 mMol/L (20.0-31.0); Chloride 107 mMol/L (98-107); Creatinine (Component) 0.4 mg/dL (0.6-1.3); Estimated Creatinine Clearance 169.5 mL/min (>60); Glucose 92 mg/dL (74-106); Magnesium 1.9 mg/dL (1.6-2.6); Osmolality,Calculated 281 (275-295); Phosphorous 3.1 mg/dL (2.4-5.1); Potassium 3.4 mMol/L (3.4-5.1); Sodium 142 mMol/L (136-145); eGFR > 60 See Note
[2024-08-18 08:00] VITALS: BP 147/86; PULSE 104; PULSE 81; RESP 18; TEMP 36.2; O2SAT 94
--- NOTE | 2024-08-18 08:37 | PC.NURSE ---
Rounded with dr Skaggs this morning per cont with anna and f/u in his office next wk.
[2024-08-18] MEDS: guaiFENesin/COD SYRUP 5 ML UDC 10 ML PO (08:41)
[2024-08-18] MEDS: HYDROcodone/APAP 5/325 TABLET 1 TAB PO (08:42)
[2024-08-18] MEDS: FERROUS SULF 325 MG TABLET PO (08:42)
--- NOTE | 2024-08-18 08:52 | PC.NURSE ---
Contacted ss on pts walker req for home per Rom ss walker will be delivered home within the next few days.
--- NOTE | 2024-08-18 09:25 | PC.SS ---
DISTRICT ATTORNEY got a call from nurse about pt needing walker, DISTRICT ATTORNEY submitted referral via enso.
--- NOTE | 2024-08-18 10:43 | ESDS_ITS ---
RE: SHARRI MARTINEZ : 1990 DATE OF ADMISSION: 08/13/2024 DATE OF DISCHARGE: 08/18/2024 HOSPITAL COURSE: This is a 33-year-old 6, para 6, who was admitted on day 3 after undergoing a non-complicated spontaneous vaginal delivery on 08/10/2024, for which she delivered a viable infant. Her course was unremarkable. She remained afebrile through that hospitalization and discharged home with a normal white blood cell count without any fever or tachycardia. Then she presented to the emergency room on 08/13/2024 with fever, chills, pelvic pain, and a foul smelling discharge. She had a fever of 102.8 with a heart rate of 132, and tenderness over the symphysis pubis. Her workup and evaluation revealed a normal chest x-ray, a pelvic x-ray showing separation of the symphysis pubis measuring 1.3 cm. A transvaginal pelvic ultrasound did not show any retained products of conception or uterine or ovarian masses. On admission, she was treated for endometritis with sepsis with Zosyn and vancomycin, Her blood culture returned showing strep pyogenes sensitive to penicillin. The vancomycin was discontinued. She remained on Zosyn. She had an episode of urinary retention, which was treated with Abernathy catheter bladder rest for several hours. A repeat blood culture came back negative. She was afebrile for over 60 hours when she was discharged home on 08/18/2024. DISCHARGE DIAGNOSES: Endometritis, sepsis, strep pyogenes bacteremia, and symphysis pubis separation. DT: 08:18:53 TT: 09:16:00 Ref: [id number] - TID: [id number] MTDD
--- NOTE | 2024-08-18 14:51 | ESPR_ITS ---
Documentation for date of: 08/18/24 Subjective Subjective Interval history: Patient seen at bedside. No acute overnight events. She has no complaints today, has remained afebrile throughout this hospitalization, more than 60 hours. Labs reviewed, slight bump in white blood cell. Repeat blood cultures were negative. Vitals are within normal limits. Evaluated by OB and cleared for discharge on antibiotics-Augmentin and Flagyl. 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 Eyes open, symmetrical, & clear CARDIO: No chest pain on palpation. Heart RRR, no obvious murmurs PULM: No noted coughing/dyspnea. Lungs CTA B/L GI: Abdomen soft, nondistended, no pain on palpation. BSx4 URO/ELEVATOR BUILDER:: Pubic symphysis slightly tender to palpation. SKIN/MSK/EXT: No wounds/rashes/edema/amputations, no pain on palpation. Pedal pulses present B/L Objective Labs 08/18/24 06:12 08/18/24 06:12 Labs: Laboratory Results - last 24 hr 08/18/24 06:12 WBC 13.6 H RBC 3.29 L Hgb 9.2 L Hct 28.1 L MCV 85 MCH 28.0 MCHC 32.7 RDW Std Deviation 56.6 H Plt Count 188 Neut % (Auto) 68 Lymph % (Auto) 18 [place] % (Auto) 4 Eos % (Auto) 1 Baso % (Auto) 1 Neut # (Auto) 9.2 H Lymph # (Auto) 2.4 [place] # (Auto) 0.6 Eos # (Auto) 0.1 Baso # (Auto) 0.1 Immature Gran # (Auto) 1.27 H Absolute Nucleated RBC 0.02 H Immature Gran % 9 H Nucleated RBC % 0 Sodium 142 Potassium 3.4 Chloride 107 Carbon Dioxide 25.2 Anion Gap 10 BUN 7 L Creatinine 0.4 L Estim Creat Clear Calc 169.5 eGFR > 60 BUN/Creatinine Ratio 18 Glucose 92 Calculated Osmolality 281 Calcium 7.6 L Corrected Calcium 8.6 Phosphorus 3.1 Magnesium 1.9 Albumin 2.7 L Quality Measures Quality Measures sepsis Current suspected stage: sepsis Possible source: other () Blood cultures ordered: yes Antibiotic ordered: Yes Assessment & Plan Plan Summary: The patient is a 33-year-old female greater 6 para 6 and day 7 was admitted for sepsis secondary to endometritis #Sepsis # endometritis #Day 7 She is a 33-year-old female 6 para 6 on day 7 after having a spontaneous vaginal delivery on 08/10 who presented with fever and suprapubic pain. She was admitted for sepsis secondary to endometritis and was started on IV Zosyn and vancomycin. Blood culture on 08/13/2024 returned positive for strep pyogenes, pansensitive. Vancomycin has been discontinued but patient continues to be on Zosyn. Currently fever free for the last 48 hours. 08/18/2024- Patient has remained afebrile throughout this hospitalization, more than 60 hours. Labs reviewed, slight bump in white blood cell. Repeat blood cultures were negative. Vitals are within normal limits. Evaluated by OB and cleared for discharge on antibiotics-Augmentin and Flagyl. Plan: -DC IV Zosyn -Discharged on Augmentin and Flagyl #Elevated troponin levels #Type II NSTEMI On admission, troponin level was 0.05. Patient denies any chest pain and EKG was unremarkable. Plan: -Continue to monitor #Pubic pain #Symphysis pubis diastasis The patient complained of pubic pain on admission, a pelvic x-ray was done which showed diastases and a pubic symphysis as complication of vaginal delivery. Plan: -Pain management -Physical therapy #Normocytic anemia The patient's looks to have chronic anemia with baseline around 10, possibly changes. Will continue to monitor and possibly recommend outpatient workup Health maintenance: Dispo: MedSurg Diet:Regular diet DVT: SCDs [place]: None Lines: Peripheral PT: Ordered Code: Full Case was discussed with Dr Smith PGY-2 and attending physician, Dr Gera Casas MD PGY-1 Disclaimer: This note was dictated by speech recognition. Minor errors in printed circuit board designer may be present due to voice recognition software. Patient examined and case discussed with the team including attending physician. Note reviewed, I agree with the care plan as documented. Ms Jordan is a pleasant 33 year old female who is s/p normal delivery. Hospitalist team was consulted for sepsis. Recommendations: Patient can be switched to PO Augmentin and discharged safely. She has remained afebrile and WBC wnl. Patient tolerating diet, adequate urine output and mentation is at baseline. RN to ambulate patient. - Justus Smith MD, PGY 2 Disclaimer: The document bellow may not be free of grammatical/phonetic/typographic errors due to use of voice recognition software. This does not dissuade from the commitment to providing health care with the patient's best interest in mind. Attending Provider Attestation/Addendum I have examined the patient, reviewed labs and imaging findings, discussed the case with the resident(s), and reviewed entered orders. I agree with the plan of care as outlined in this note. Dr. Gera MD
== END 2024-08-18 10:01 | disposition home or self-care (01) | DRG 561 ==
LOC: SERX 21:51 → SERHOLD 08-14 02:02 → S3SX 08-14 12:19
PROVIDERS: Admitting Provider Specialist; Emergency Provider Emergency Medicine; Visit Provider Specialist
DX: O86.04 Sepsis following an obstetrical procedure (principal); A40.0 Sepsis due to streptococcus, group A; O86.12 Endometritis following delivery; N39.0 Urinary tract infection, site not specified; E87.6 Hypokalemia; R05.9 Cough, unspecified; O14.05 Mild to moderate pre-eclampsia, complicating the puerperium; O71.6 Obstetric damage to pelvic joints and ligaments; O90.81 Anemia of the puerperium; D50.9 Iron deficiency anemia, unspecified; O99.73 Diseases of the skin and subcutaneous tissue complicating the puerperium; Z86.32 Personal history of gestational diabetes; L98.9 Disorder of the skin and subcutaneous tissue, unspecified; O90.89 Other complications of the puerperium, not elsewhere classified; R93.89 Abnormal findings on diagnostic imaging of other specified body structures; Z16.11 Resistance to penicillins
CPT/HCPCS: 36415; 71045; 71046; 72170; 76830; 76856; 80053; 80069; 80202; 81001; 83605; 83615; 83690; 83735; 83880; 84100; 84145; 84484; 85025; 85384; 85610; 85730; 87040; 87077; 87081; 87086; 87186; 87400; 87493; 87811; 93005; 93225; 93306; 96361; 96365; 96366; 96367; 96368; 96375; 96376; 97162; 99291; J0131; J2405; J2543; J3370; J3371; J3480; J3490; J7030; J7050; J7120; S0077; A9270; J0737